=== PATIENT | male | born 1950 | race Caucasian/White ===

== ENCOUNTER 2020-05-27 08:30 | Outpatient (REF) | payer MEDICARE, SELFPAY ==
[2020-05-27 09:21] LABS: MANUAL DIFF FLAG NO
[2020-05-27 09:27] LABS: Basophils Absolute Auto 0.1 X10*3/uL (0.0-0.2); Basophils Percent Auto 1.2 % (0-2); Eosinophils Absolute Auto 0.3 X10*3/uL (0.0-0.4); Eosinophils Percent Auto 6.9 % (0-4); Hematocrit 42.9 % (42-52); Hemoglobin 14.2 g/dl (14.0-18.0); Imm Gran Abs Auto 0.02 X10*3/uL (0.00-0.03); Imm Gran Pct Auto 0.4 % (0.0-0.4); Lymphocytes Absolute Auto 1.7 X10*3/uL (1.2-4.9); Lymphocytes Percent Auto 33.7 % (20-40); Mean Corpuscular HGB Conc 33.1 g/dl (31.0-36.0); Mean Corpuscular Hemoglobin 31.6 pg (27.0-33.0); Mean Corpuscular Volume 95.5 fL (80-98); Mean Platelet Volume 10.6 fL (9.4-12.4); Monocytes Absolute Auto 0.5 X10*3/uL (0.1-1.2); Monocytes Percent Auto 9.7 % (2-11); Neutrophils Absolute Auto 2.4 X10*3/uL (2.0-8.3); Neutrophils Percent Auto 48.1 % (45-73); Platelet Count 215 X10*3/uL (160-400); Red Blood Count 4.49 X10*6/uL (4.60-5.80); Red Cell Distribution Width 12.9 % (11.0-16.0)
[2020-05-27 09:55] LABS: Alanine Aminotransferase 17 U/L (0-40); Alkaline Phosphatase 60 U/L (39-117); Anion Gap 11 (12-20); Aspartate Amino Transferase 28 U/L (5-37); Bilirubin Total 0.5 mg/dL (0.0-1.0); Blood Urea Nitrogen 16 mg/dL (9-16); Calcium 9.2 mg/dL (8.4-10.2); Carbon Dioxide 29 mmol/L (22-29); Chloride 104 mmol/L (96-108); Cholesterol 203 mg/dL; Estimated Glomerular Filt Rate > 60; Glucose Random 106 mg/dL (60-115); HDL Cholesterol 81 mg/dL; LDL Cholesterol Calculated 109 mg/dl; Potassium 4.5 mmol/l (3.3-5.1); Sodium 139 mmol/L (135-145); Total Protein 6.7 g/dL (6.5-8.0); Triglycerides 68 mg/dL
[2020-05-27 10:13] LABS: T4 Thyroxine 6.5 ug/dL (4.5-12.0)
[2020-05-27 10:29] LABS: Folate 11.3 ng/mL (> or = 4.0); Vitamin B12 627 pg/mL (200-900)
[2020-05-27 10:44] LABS: Prostate Specific Antigen Scr 5.31 ng/mL (<0.05-4.0); Thyroid Stimulating Hormone 1.39 mIU/mL (0.32-4.0)
== END 2020-05-27 08:31 | disposition home or self-care (01) ==
LOC: HO.LAB 08:30
PROVIDERS: PCP Internal Medicine; Visit Provider Internal Medicine
DX: F32.9 Major depressive disorder, single episode, unspecified (principal); I10 Essential (primary) hypertension; F41.9 Anxiety disorder, unspecified; E78.00 Pure hypercholesterolemia, unspecified; K21.9 Gastro-esophageal reflux disease without esophagitis
CPT/HCPCS: 36415; 80053; 80061; 82607; 82746; 84153; 84436; 84443; 85025

== ENCOUNTER 2020-10-02 15:03 | Outpatient (REF) | payer MEDICARE, SELFPAY ==
[2020-10-03 11:16] LABS: Free Prostate Spec Ag 0.9 ng/mL; Percent Free Prostate Spec Ag 13 % (calc) (>25); Prostate Specific Ag Total 6.7 ng/mL (< OR = 4.0)
== END 2020-10-02 15:04 | disposition home or self-care (01) ==
LOC: HO.LAB 15:03
PROVIDERS: PCP Internal Medicine; Visit Provider Urology
DX: R97.20 Elevated prostate specific antigen [PSA] (principal); N40.1 Benign prostatic hyperplasia with lower urinary tract symptoms; Z12.5 Encounter for screening for malignant neoplasm of prostate
CPT/HCPCS: 36415; 84153; 84154

== ENCOUNTER 2020-11-07 08:55 | Outpatient (REF) | payer MEDICARE, SELFPAY ==
[2020-11-07 09:37] LABS: MANUAL DIFF FLAG NO
[2020-11-07 09:55] LABS: Basophils Absolute Auto 0.1 X10*3/uL (0.0-0.2); Basophils Percent Auto 0.8 % (0-2); Eosinophils Absolute Auto 0.3 X10*3/uL (0.0-0.4); Eosinophils Percent Auto 4.5 % (0-4); Hematocrit 44.6 % (42-52); Hemoglobin 15.1 g/dl (14.0-18.0); Imm Gran Abs Auto 0.03 X10*3/uL (0.00-0.03); Imm Gran Pct Auto 0.4 % (0.0-0.4); Lymphocytes Absolute Auto 1.6 X10*3/uL (1.2-4.9); Lymphocytes Percent Auto 22.6 % (20-40); Mean Corpuscular HGB Conc 33.9 g/dl (31.0-36.0); Mean Corpuscular Hemoglobin 32.3 pg (27.0-33.0); Mean Corpuscular Volume 95.3 fL (80-98); Mean Platelet Volume 11.1 fL (9.4-12.4); Monocytes Absolute Auto 0.6 X10*3/uL (0.1-1.2); Monocytes Percent Auto 8.1 % (2-11); Neutrophils Absolute Auto 4.5 X10*3/uL (2.0-8.3); Neutrophils Percent Auto 63.6 % (45-73); Platelet Count 218 X10*3/uL (160-400); Red Blood Count 4.68 X10*6/uL (4.60-5.80); Red Cell Distribution Width 12.8 % (11.0-16.0); White Blood Count 7.1 X10*3/uL (4.8-10.8)
[2020-11-07 10:15] LABS: Alanine Aminotransferase 25 U/L (0-40); Albumin Level 4.1 g/dL (3.5-5.0); Alkaline Phosphatase 71 U/L (39-117); Anion Gap 11 (12-20); Aspartate Amino Transferase 30 U/L (5-37); Bilirubin Total 0.6 mg/dL (0.0-1.0); Blood Urea Nitrogen 23 mg/dL (9-16); Calcium 9.2 mg/dL (8.4-10.2); Carbon Dioxide 31 mmol/L (22-29); Chloride 101 mmol/L (96-108); Cholesterol 215 mg/dL; Estimated Glomerular Filt Rate > 60; Glucose Random 105 mg/dL (60-115); HDL Cholesterol 72 mg/dL; LDL Cholesterol Calculated 129 mg/dl; Potassium 4.2 mmol/L (3.3-5.1); Sodium 139 mmol/L (135-145); Total Protein 7.1 g/dL (6.5-8.0); Triglycerides 73 mg/dL
[2020-11-07 10:42] LABS: Free T4 (Free Thyroxine) 0.87 ng/dL (0.71-1.85); Prostate Specific Antigen Scr 5.79 ng/mL (<0.05-4.0); Thyroid Stimulating Hormone 1.84 uIU/mL (0.32-4.0)
[2020-11-07 11:17] LABS: Vitamin B12 559 pg/mL (200-900)
== END 2020-11-07 08:56 | disposition home or self-care (01) ==
LOC: HO.LAB 08:55
PROVIDERS: PCP Internal Medicine; Visit Provider Internal Medicine
DX: E78.00 Pure hypercholesterolemia, unspecified (principal); I10 Essential (primary) hypertension; Z12.5 Encounter for screening for malignant neoplasm of prostate
CPT/HCPCS: 36415; 80053; 80061; 82607; 82746; 84153; 84439; 84443; 85025

== ENCOUNTER 2021-03-23 12:16 | Outpatient (REF) | payer MEDICARE, SELFPAY ==
[2021-03-23 14:52] LABS: Prostate Specific Antigen Scr 5.95 ng/mL (<0.05-4.0)
[2021-03-25 07:41] LABS: Lyme Blot 5.56 index
[2021-03-25 11:24] LABS: Lyme Abs Screen POSITIVE
[2021-03-26 17:21] LABS: 18 KD (IgG) Band NON-REACTIVE; 23 KD (IgG) Band NON-REACTIVE; 23 KD (IgM) Band NON-REACTIVE; 28 KD (IgG) Band NON-REACTIVE; 30 KD (IgG) Band NON-REACTIVE; 39 KD (IgM) Band NON-REACTIVE; 41 KD (IgM) Band NON-REACTIVE; 45 KD (IgG) Band NON-REACTIVE; 58 KD (IgG) Band NON-REACTIVE; 66 KD (IgG) Band NON-REACTIVE; 93 KD (IgG) Band NON-REACTIVE; Lyme IgG Blot Interp NEGATIVE (NEGATIVE); Lyme IgM Blot Interp NEGATIVE (NEGATIVE)
== END 2021-03-23 12:17 | disposition home or self-care (01) ==
LOC: HO.LAB 12:16
PROVIDERS: PCP Internal Medicine; Visit Provider Hospitalist
DX: N40.0 Benign prostatic hyperplasia without lower urinary tract symptoms (principal); S70.261A Insect bite (nonvenomous), right hip, initial encounter; W57.XXXA Bitten or stung by nonvenomous insect and other nonvenomous arthropods, initial encounter; Y93.9 Activity, unspecified; Y92.9 Unspecified place or not applicable; Y99.9 Unspecified external cause status; Z12.5 Encounter for screening for malignant neoplasm of prostate
CPT/HCPCS: 36415; 84153; 86617; 86618

== ENCOUNTER 2021-04-09 14:24 | Outpatient (REF) | payer MEDICARE, SELFPAY ==
[2021-04-09 14:55] LABS: MANUAL DIFF FLAG NO
[2021-04-09 15:00] LABS: Basophils Percent Auto 0.6 % (0-2); Eosinophils Absolute Auto 0.2 X10*3/uL (0.0-0.4); Hematocrit 42.9 % (42-52); Hemoglobin 14.8 g/dl (14.0-18.0); Imm Gran Abs Auto 0.03 X10*3/uL (0.00-0.03); Imm Gran Pct Auto 0.4 % (0.0-0.4); Lymphocytes Absolute Auto 1.4 X10*3/uL (1.2-4.9); Lymphocytes Percent Auto 19.4 % (20-40); Mean Corpuscular HGB Conc 34.5 g/dl (31.0-36.0); Mean Corpuscular Hemoglobin 32.1 pg (27.0-33.0); Mean Corpuscular Volume 93.1 fL (80-98); Mean Platelet Volume 10.8 fL (9.4-12.4); Monocytes Absolute Auto 0.5 X10*3/uL (0.1-1.2); Monocytes Percent Auto 6.7 % (2-11); Neutrophils Absolute Auto 5.1 X10*3/uL (2.0-8.3); Neutrophils Percent Auto 69.9 % (45-73); Platelet Count 215 X10*3/uL (160-400); Red Blood Count 4.61 X10*6/uL (4.60-5.80); Red Cell Distribution Width 12.5 % (11.0-16.0); White Blood Count 7.3 X10*3/uL (4.8-10.8)
[2021-04-09 15:32] LABS: Alanine Aminotransferase 20 U/L (0-40); Albumin Level 4.2 g/dL (3.5-5.0); Alkaline Phosphatase 78 U/L (39-117); Anion Gap 12 (12-20); Aspartate Amino Transferase 26 U/L (5-37); Bilirubin Total 0.6 mg/dL (0.0-1.0); Blood Urea Nitrogen 18 mg/dL (9-16); Calcium 9.7 mg/dL (8.4-10.2); Carbon Dioxide 29 mmol/L (22-29); Chloride 103 mmol/L (96-108); Estimated Glomerular Filt Rate > 60; Glucose Random 95 mg/dL (60-115); Potassium 4.5 mmol/L (3.3-5.1); Sodium 139 mmol/L (135-145); Total Protein 7.1 g/dL (6.5-8.0)
[2021-04-09 15:42] LABS: Thyroid Stimulating Hormone 2.18 uIU/mL (0.32-4.0); Vitamin D 25-OH Total 45.2 ng/mL (>30)
[2021-04-09 15:54] LABS: Folate 19.8 ng/mL (> or = 4.0); Vitamin B12 605 pg/mL (200-900)
[2021-04-10 09:41] LABS: Lyme Blot 6.17 index
[2021-04-11 14:09] LABS: Lyme Abs Screen POSITIVE
[2021-04-13 17:56] LABS: 18 KD (IgG) Band NON-REACTIVE; 23 KD (IgG) Band NON-REACTIVE; 23 KD (IgM) Band NON-REACTIVE; 28 KD (IgG) Band NON-REACTIVE; 30 KD (IgG) Band NON-REACTIVE; 39 KD (IgM) Band NON-REACTIVE; 41 KD (IgM) Band NON-REACTIVE; 45 KD (IgG) Band NON-REACTIVE; 58 KD (IgG) Band NON-REACTIVE; 66 KD (IgG) Band NON-REACTIVE; 93 KD (IgG) Band NON-REACTIVE; Lyme IgG Blot Interp NEGATIVE (NEGATIVE); Lyme IgM Blot Interp NEGATIVE (NEGATIVE)
== END 2021-04-09 14:25 | disposition home or self-care (01) ==
LOC: HO.LAB 14:24
PROVIDERS: PCP Internal Medicine; Visit Provider Internal Medicine
DX: T14.8XXA Other injury of unspecified body region, initial encounter (principal); W57.XXXA Bitten or stung by nonvenomous insect and other nonvenomous arthropods, initial encounter
CPT/HCPCS: 36415; 80053; 82306; 82607; 82746; 84439; 84443; 85025; 86617; 86618

== ENCOUNTER → 2021-04-27 15:00 | Outpatient (BNVA) | payer MEDICARE, SELFPAY | PROVIDERS: PCP Internal Medicine; Visit Provider Internal Medicine | DX: R21 Rash and other nonspecific skin eruption (principal); S40.862A Insect bite (nonvenomous) of left upper arm, initial encounter; S40.861A Insect bite (nonvenomous) of right upper arm, initial encounter; W57.XXXA Bitten or stung by nonvenomous insect and other nonvenomous arthropods, initial encounter; Y93.9 Activity, unspecified; Y92.9 Unspecified place or not applicable; Y99.9 Unspecified external cause status; I10 Essential (primary) hypertension; E78.00 Pure hypercholesterolemia, unspecified; Z87.891 Personal history of nicotine dependence | CPT/HCPCS: 99212 ==

== ENCOUNTER → 2021-07-16 07:46 | Outpatient (REF) | payer MEDICARE, SELFPAY ==
--- NOTE | 2021-07-16 07:49 | HM_ITS ---
Conclusion: 1. Patient was monitored for total period of 4 days and 7 hours 2. Baseline was normal sinus rhythm with average heart of 72 beats per min 3. No significant pauses or bradycardia noted 4. Total of 20,229 PACs noted accounting for frequent PACs with total burden of 6.25% 5. Total of 16 supraventricular tachycardia episode noted longest lasting 7 beats at 114 beats per minute and fastest at 193 beats per minute 6. No patient reported events MTDD
== END ==
LOC: HO.CARD 07:46
PROVIDERS: PCP Internal Medicine; Visit Provider Nurse Practitioner Family
DX: R00.1 Bradycardia, unspecified (principal); I10 Essential (primary) hypertension
CPT/HCPCS: 93242

== ENCOUNTER 2021-08-24 11:31 | Outpatient (REF) | payer MEDICARE, SELFPAY ==
--- NOTE | ~2021-08-24 | XR_ITS ---
EXAMINATION: XR RIBS, LEFT CLINICAL INFORMATION: Contusion of left frontal thorax COMPARISON: None TECHNIQUE: 3 views of the left ribs were obtained. Chest one view FINDINGS: Lungs are clear. No consolidation, pneumothorax, or pleural effusion. The cardiomediastinal silhouette and pulmonary vasculature are normal. Osseous structures are unremarkable. Multiple views of left ribs reveal no visible rib fracture or bony abnormality. XR/XR ribs LT min 3V w CXR1V IMPRESSION: Unremarkable chest examination. Unremarkable left rib exam.
== END 2021-08-24 11:32 | disposition home or self-care (01) ==
LOC: HO.HMGCX 11:31
PROVIDERS: Visit Provider Internal Medicine
DX: S20.219A Contusion of unspecified front wall of thorax, initial encounter (principal)
CPT/HCPCS: 71101

== ENCOUNTER 2021-08-30 10:15 | Emergency (ER) | payer MEDICARE, SELFPAY ==
--- NOTE | ~2021-08-30 | CT_ITS ---
EXAMINATION: CT CHEST WITHOUT CONTRAST CLINICAL INFORMATION: Left-sided chest wall pain after fall COMPARISON: Chest and left rib x-rays 08/24/2021 TECHNIQUE: Multidetector volumetric CT imaging of the chest was done. Axial MIP volume rendering provided. Sagittal and coronal reformatted images were obtained. This CT examination was performed using dose optimization techniques as appropriate, variously including the following: *Automated exposure control *Adjustment of mA and/or kV according to patient size (this includes techniques or standardized protocols for targeted exams where dose is matched to indication/reason for exam; i.e. extremities or head) *Use of iterative reconstruction technique DLP: 288 mGy-cm FINDINGS: LUNGS: There is subsegmental atelectasis left midlung and at the lung bases. The lungs are otherwise clear. No evidence of contusion is seen. MEDIASTINUM: The heart is upper normal in size. The thoracic aorta is upper normal in size. There is coronary artery calcification. There is no pericardial effusion. There are no enlarged hilar or mediastinal lymph nodes. There is a small esophageal hernia. PLEURA: As a trace left pleural effusion or pleural thickening. There is no right pleural effusion. There is no pneumothorax. AXILLA: There is soft tissue swelling over the left lateral chest wall adjacent to rib fractures. No chest wall mass or enlarged axillary lymph nodes are seen. UPPER ABDOMEN: Unremarkable. OSSEOUS STRUCTURES: There are anterior lateral left sixth seventh and 8 recent appearing rib fractures. There is an old-appearing left posterior 10th rib fracture. CT/CT chest wo con IMPRESSION: Recent appearing left anterior lateral sixth and seventh and eighth rib fractures and adjacent chest wall soft tissue swelling. Subsegmental atelectasis in the left lung. Trace left pleural effusion or pleural thickening. No pneumothorax. Fleischner guidelines were followed.
[2021-08-30 10:21] VITALS: BP 168/81; PULSE 59; RESP 14; TEMP 36.3; O2SAT 98; BMI 25.8
--- NOTE | 2021-08-30 11:04 | ED.GENADULT ---
HPI - General Adult General Chief complaint: General Medical <Evelia Moyer NP - Last Filed: 08/30/21 12:30> Stated complaint: Rib pain <Evelia Moyer NP - Last Filed: 08/30/21 12:30> Time Seen by Provider: 08/30/21 10:30 <Evelia Moyer NP - Last Filed: 08/30/21 12:30> Source: patient <Evelia Moyer NP - Last Filed: 08/30/21 12:30> Mode of arrival: ambulatory <Evelia Moyer NP - Last Filed: 08/30/21 12:30> Limitations: no limitations <Evelia Moyer NP - Last Filed: 08/30/21 12:30> History of Present Illness HPI narrative: 70-year-old male here with reports of left-sided chest wall pain after skiing incident which occurred August 20. Patient tells me he was skiing when his pole hit his left chest wall. He was seen at a walk-in clinic on August 24 and had a rib x-ray which showed no acute fractures. He has been using Naprosyn twice daily with continued pain. No cough, fever, shortness of breath, abdominal pain, vomiting or diarrhea. Patient is not on anticoagulation There was no head strike or loss of consciousness <Evelia Moyer NP - Last Filed: 08/30/21 12:30> Related Data Home medications: Home Medications Medication Instructions Recorded Confirmed duloxetine 60 mg capsule,delayed 60 mg PO DAILY 05/23/20 07/07/21 release (Cymbalta) multivitamin 1 tab PO DAILY 05/23/20 07/07/21 diazepam 2 mg tablet 2 mg PO BID PRN 08/13/21 Previous Rx's Medication Instructions Recorded omeprazole 40 mg capsule,delayed 40 mg PO DAILY #90 cap 11/18/20 release simvastatin 40 mg tablet 40 mg PO DAILY #90 tab 11/18/20 lisinopril 20 1 tab PO DAILY #90 tab 07/07/21 mg-hydrochlorothiazide 12.5 mg tablet cyclobenzaprine 10 mg tablet 10 mg PO TID PRN #10 tab 08/30/21 lidocaine 5 % topical patch 1 patch TOPICAL DAILY #15 ea 08/30/21 (Lidoderm) naproxen 500 mg tablet 500 mg PO BID PRN #20 tab 08/30/21 <Evelia Moyer NP - Last Filed: 08/30/21 12:30> Allergies/adverse reactions: Allergies Allergy/AdvReac Type Severity Reaction Status Date / Time No Known Allergies Allergy Verified 08/24/21 10:51 [No Known Allergies*] <Evelia Moyer NP - Last Filed: 08/30/21 12:30> Review of Systems Review of Systems: Yes all other systems are reviewed and are negative <Evelia Moyer NP - Last Filed: 08/30/21 12:30> Constitutional: Constitutional: Reports no additional constitutional complaints, Denies body ache(s), Denies chills, Denies fever(s), Denies headache(s) and Denies weakness <Evelia Moyer NP - Last Filed: 08/30/21 12:30> Eyes: Eyes: Reports no additional eye complaints and Denies change in vision <Evelia Moyer NP - Last Filed: 08/30/21 12:30> ENT: Reports system reviewed and no additional complaints, except as documented, Denies dizziness, Denies headache(s), Denies nasal congestion, Denies nasal discharge and Denies neck pain <Evelia Moyer NP - Last Filed: 08/30/21 12:30> Cardiovascular: Cardiovascular: Reports no additional cardiovascular complaints, Reports chest pain, Denies leg edema and Denies dyspnea <Evelia Moyer NP - Last Filed: 08/30/21 12:30> Respiratory: Respiratory: Reports no additional respiratory complaints, Denies cough and Denies dyspnea <Evelia Moyer NP - Last Filed: 08/30/21 12:30> Gastrointestinal: Gastrointestinal: Reports no additional gastrointestinal complaints, Denies abdominal pain, Denies diarrhea, Denies nausea and Denies vomiting <Evelia Moyer NP - Last Filed: 08/30/21 12:30> Genitourinary: Genitourinary: Denies urinary incontinence <Evelia Moyer NP - Last Filed: 08/30/21 12:30> Musculoskeletal: Musculoskeletal: Reports no additional musculoskeletal complaints, Denies back pain, Denies arthralgias, Denies joint swelling, Denies neck pain, Denies numbness and Denies tingling <Evelia Moyer NP - Last Filed: 08/30/21 12:30> Integumentary/Breasts: Skin/Breast: Reports system reviewed and no additional complaints, except as docu and Denies rash <Evelia Moyer NP - Last Filed: 08/30/21 12:30> Neurologic: Reports system reviewed and no additional complaints, except as documented, Denies Abnormal speech present, Denies dizziness, Denies headache(s), Denies numbness, Denies tingling and Denies weakness <Evelia Moyer NP - Last Filed: 08/30/21 12:30> [facility] Past Medical History Attestation statement: The following information was validated with the patient. <Evelia Moyer NP - Last Filed: 08/30/21 12:30> Source: old records reviewed and nursing notes reviewed <Evelia Moyer NP - Last Filed: 08/30/21 12:30> Medical History: Medical History BPH (benign prostatic hyperplasia) Finger fracture, right GERD (gastroesophageal reflux disease) Hypercholesterolemia Rash <Evelia Moyer NP - Last Filed: 08/30/21 12:30> Surgical History: Surgical History History of eye surgery History of inguinal hernia repair History of knee surgery History of tonsillectomy History of vasectomy <Evelia Moyer NP - Last Filed: 08/30/21 12:30> Family History Family History: Family History Father Bladder cancer Mother No problems noted. <Evelia Moyer NP - Last Filed: 08/30/21 12:30> Social History Social History: Social History Housing: House Alcohol intake: current Alcohol intake frequency: 0-2 drinks per day Patient Tobacco Use Status: Former Tobacco user e-Cigarette/Vaping Use: Never Used Second Hand Smoke Exposure: No Advance Directives: Yes Advance Directives Information Provided: No Advance Directives on File: No service: No Current occupational status: retired <Evelia Moyer NP - Last Filed: 08/30/21 12:30> Physical Exam Vital Signs: Vital Signs: Last Vital Signs Temp 97.4 F 08/30/21 10:21 Pulse 59 08/30/21 10:21 Resp 14 08/30/21 10:21 BP 168/81 H 08/30/21 10:21 Pulse Ox 98 08/30/21 10:21 BMI result Body Mass Index 25.8 <Evelia Moyer NP - Last Filed: 08/30/21 12:30> Vital Signs: Last Vital Signs Temp 97.4 F 08/30/21 10:21 Pulse 59 08/30/21 10:21 Resp 14 08/30/21 10:21 BP 168/81 H 08/30/21 10:21 Pulse Ox 98 08/30/21 10:21 BMI result Body Mass Index 25.8 <Geoff Grigsby MD - Last Filed: 09/01/21 06:51> Const: General: cooperative, healthy appearing, comfortable and no acute distress <Evelia Moyer NP - Last Filed: 08/30/21 12:30> Orientation/consciousness: patient oriented x3 <Evelia Moyer NP - Last Filed: 08/30/21 12:30> Limitations: no limitations <Evelia Moyer NP - Last Filed: 08/30/21 12:30> HENMT: Head: Yes normal to inspection <Evelia Moyer NP - Last Filed: 08/30/21 12:30> Ears: hearing grossly normal bilaterally <Evelia Moyer NP - Last Filed: 08/30/21 12:30> General nose exam: Normal external nose present <Evelia Moyer NP - Last Filed: 08/30/21 12:30> Face and sinus: Yes normal facial exam <Evelia Moyer NP - Last Filed: 08/30/21 12:30> Mouth: Normal oral and palatal mucosa present <Evelia Moyer NP - Last Filed: 08/30/21 12:30> Throat: Yes posterior oropharynx normal <Evelia Moyer NP - Last Filed: 08/30/21 12:30> Eyes: General: appearance normal, both eyes and all related structures <Evelia Moyer NP - Last Filed: 08/30/21 12:30> Pupils: Equal, round and reactive pupils present <Evelia Moyer NP - Last Filed: 08/30/21 12:30> Neck: Neck: Yes normal visual inspection, Yes full ROM and Yes no lymphadenopathy <Evelia Moyer NP - Last Filed: 08/30/21 12:30> Chest: Chest palpation & inspection: normal inspection of the chest and tenderness (Left lateral chest wall over the lateral ribs. No ecchymosis or crepitus) <Evelia Moyer NP - Last Filed: 08/30/21 12:30> Resp: Effort & Inspection: normal respiratory effort <Evelia Moyer NP - Last Filed: 08/30/21 12:30> Auscultation: clear to auscultation bilaterally <Evelia Moyer NP - Last Filed: 08/30/21 12:30> Cardio: Rate: regular rate <Evelia Moyer NP - Last Filed: 08/30/21 12:30> Rhythm: regular rhythm <Evelia Moyer NP - Last Filed: 08/30/21 12:30> Peripheral pulses: Peripheral pulses 2+ throughout <Evelia Moyer NP - Last Filed: 08/30/21 12:30> GI: Inspection: Yes normal to inspection <Evelia Moyer NP - Last Filed: 08/30/21 12:30> Palpation (GI): Soft to palpation and nontender <Evelia Moyer NP - Last Filed: 08/30/21 12:30> Auscultation: normal bowel sounds <Evelia Moyer NP - Last Filed: 08/30/21 12:30> Back/Spine/Pelvis: Thoracic/Lumbar Spine: thoracic and lumbar spine normal to inspection <Evelia Moyer NP - Last Filed: 08/30/21 12:30> Skin: General skin exam: no rashes or lesions noted <Evelia Moyer NP - Last Filed: 08/30/21 12:30> Neuro: General: patient oriented x3, no focal motor deficits and normal sensation to monofilament <Evelia Moyer NP - Last Filed: 08/30/21 12:30> Cranial nerves: Yes Equal, round and reactive pupils present <Evelia Moyer NP - Last Filed: 08/30/21 12:30> Cognition (Neuro): normal cognition <Evelia Moyer NP - Last Filed: 08/30/21 12:30> Speech: No Abnormal speech present <Evelia Moyer NP - Last Filed: 08/30/21 12:30> Gait exam (Neuro): Normal gait present <Evelia Moyer NP - Last Filed: 08/30/21 12:30> Motor exam (neuro): 5/5 motor strength present throughout <Evelia Moyer NP - Last Filed: 08/30/21 12:30> Extrem: General: Yes normal to inspection <Evelia Moyer NP - Last Filed: 08/30/21 12:30> Course Course Course Narrative: 70-year-old male here with persistent left chest wall pain after a skiing injury on August 20 despite taking Naprosyn at home. Negative outpatient x-ray. Will check CT chest 1150-CT chest shows CT/CT chest wo con ?IMPRESSION: Recent appearing left anterior lateral sixth and seventh and eighth rib fractures and adjacent chest wall soft tissue swelling. Subsegmental atelectasis in the left lung. Trace left pleural effusion or pleural thickening. No pneumothorax.? ? No hypoxia, tachypnea. Pain is well controlled. Plan for discharge home with incentive spirometer. Reviewed worrisome signs and symptoms of when to return to the emergency department. Comfortable discharge home. <Evelia Moyer NP - Last Filed: 08/30/21 12:30> Medical Decision Making Medical Records Medical records reviewed: Yes I reviewed the patient's medical records. <Evelia Moyer NP - Last Filed: 08/30/21 12:30> Lab Data Lab results reviewed: Yes I reviewed the patient's lab results. <Evelia Moyer NP - Last Filed: 08/30/21 12:30> Imaging Data CT scan - chest: Attestation: I personally reviewed and interpreted this imaging study as follows: <Evelia Moyer NP - Last Filed: 08/30/21 12:30> Radiologist's impression: CT/CT chest wo con ?IMPRESSION: Recent appearing left anterior lateral sixth and seventh and eighth rib fractures and adjacent chest wall soft tissue swelling. Subsegmental atelectasis in the left lung. Trace left pleural effusion or pleural thickening. No pneumothorax.? ? Fleischner guidelines were followed. <Evelia Moyer NP - Last Filed: 08/30/21 12:30> Discharge Plan Discharge Clinical Impression: Closed rib fracture <Evelia Moyer NP - Last Filed: 08/30/21 12:30> Patient Disposition: Home, Self-Care <Evelia Moyer NP - Last Filed: 08/30/21 12:30> Instructions: Rib Fracture (ED) <Evelia Moyer NP - Last Filed: 08/30/21 12:30> Additional Instructions: Use incentive spirometer at home while awake Return for fever or productive cough for difficulty breathing as this may be signs of pneumonia <Evelia Moyer NP - Last Filed: 08/30/21 12:30> Prescriptions: New naproxen 500 mg tablet 500 mg PO BID PRN (Reason: pain) Qty: 20 RF: 0 cyclobenzaprine 10 mg tablet 10 mg PO TID PRN (Reason: muscle spasm) Qty: 10 RF: 0 lidocaine [Lidoderm] 5 % adhesive patch,medicated 1 patch topical DAILY Qty: 15 RF: 0 No Action multivitamin Tablet 1 tab PO DAILY RF: 0 duloxetine [Cymbalta] 60 mg capsule,delayed release(DR/EC) 60 mg PO DAILY RF: 0 simvastatin 40 mg tablet 40 mg PO DAILY Qty: 90 RF: 3 omeprazole 40 mg capsule,delayed release(DR/EC) 40 mg PO DAILY Qty: 90 RF: 3 diazepam 2 mg tablet 2 mg PO BID PRNRF: 0 lisinopril-hydrochlorothiazide 20-12.5 mg tablet 1 tab PO DAILY Qty: 90 RF: 0 <Evelia Moyer NP - Last Filed: 08/30/21 12:30> Referrals: Po,Rojelio Venegas MD [Primary Care Provider] - 2 days (as needed) <Evelia Moyer NP - Last Filed: 08/30/21 12:30> Interventions: ED Discharge Assessment Last Done: 08/30/21 12:01 <Evelia Moyer NP - Last Filed: 08/30/21 12:30> Discharge Date/Time: 08/30/21 12:01 <Evelia Moyer NP - Last Filed: 08/30/21 12:30>
== END 2021-08-30 12:01 | disposition home or self-care (01) ==
PROVIDERS: Emergency Provider Emergency Medicine; PCP Internal Medicine
DX: S22.42XA Multiple fractures of ribs, left side, initial encounter for closed fracture (principal); R07.81 Pleurodynia; Y93.23 Activity, snow (alpine) (downhill) skiing, snowboarding, sledding, tobogganing and snow tubing; Y92.828 Other wilderness area as the place of occurrence of the external cause; Y99.9 Unspecified external cause status; Z79.899 Other long term (current) drug therapy; Z87.891 Personal history of nicotine dependence
CPT/HCPCS: 71250; 99283

== ENCOUNTER → 2021-09-23 14:55 | Outpatient (BNVA) | payer MEDICARE, SELFPAY | PROVIDERS: PCP Internal Medicine; Referring Provider Internal Medicine; Visit Provider Internal Medicine Cardiovascular Disease | DX: I47.1 Supraventricular tachycardia (principal); I25.10 Atherosclerotic heart disease of native coronary artery without angina pectoris | CPT/HCPCS: 99202 ==

== ENCOUNTER → 2021-11-02 07:41 | Outpatient (REF) | payer MEDICARE, SELFPAY ==
--- NOTE | 2021-11-02 07:46 | CA_ITS ---
Acquisition Time: 2021-11-02 08:08:47 Total Exercise Time: 00:06:42 Test Indications: ABN EKG, SVT Medications: SEE CHART Protocol: LETHA Max HR: 129 BPM 87% of Pred: 147 BPM Max BP: 150/078 mmHG Max Work Load: 8.0 METS Exercise stress test with exercise 6 min 42 sec of Letha protocol, without anginal symptoms, with frequent PACs, rare PVC, with normotensive response to exercise, without EKG changes meeting criteria for ischemia, with nonspecific ST abnormality noted, scooping ST segments. Test reviewed with Dr. Cameron Referred By: Royce Ambrose Overread By: JORDI DUNN
== END ==
LOC: HO.CARD 07:41
PROVIDERS: Visit Provider Internal Medicine Cardiovascular Disease
DX: I25.10 Atherosclerotic heart disease of native coronary artery without angina pectoris (principal)
CPT/HCPCS: 93017

== ENCOUNTER → 2021-11-06 10:29 | Outpatient (REF) | payer MEDICARE, SELFPAY ==
--- NOTE | 2021-11-06 10:32 | CA_ITS ---
Transthoracic Echocardiogram Patient (Last, First, Middle): Eyad Mistry E Gender: Male Date of : 1950 Age: 71 Procedure Date: 11/06/2021 Procedure Type: Transthoracic Echocardiogram Location: OP Height: 172.72 cm Weight: 77.11 kg BSA: 1.91 m2 Heart Rate: bpm BP: 136 / 78 mmHg [employer]r: RUBA Referring MD: Royce Ambrose MD Symptoms: I47.1 - Supraventricular tachycardia Study Quality: Good ECG Rhythm: Sinus Conclusions: - The calculated ejection fraction is 63% by biplane method. There is no evidence of regional wall motion abnormalities. - LV peak GLS -18.4%. - Mildly increased right ventricular cavity size. - No obvious valvular pathology seen on this study. Findings Left Ventricle Normal left ventricular cavity size. The left ventricular systolic function is normal. The calculated ejection fraction is 63% by biplane method. There is no evidence of regional wall motion abnormalities. Diastolic function is normal for age. There is mild septal and mild basal asymmetric hypertrophy. LV peak GLS -18.4%. Right Ventricle Mildly increased right ventricular cavity size. There is normal right ventricular systolic function. Atria Both atria are normal in size. Aortic Valve There is a normal trileaflet aortic valve. There is mild calcification of the aortic valve. There is no aortic valve stenosis. There is no aortic valve regurgitation. Mitral Valve The mitral valve appears normal. There is no mitral valve regurgitation. There is no mitral valve stenosis. Pulmonic Valve The pulmonic valve was not well visualized. Tricuspid Valve There is trace tricuspid valve regurgitation. The pulmonary artery systolic pressure is normal. Great Vessels The asc aorta and aortic arch are normal in size. Venous The inferior vena cava is normal in size and collapses greater than 50% with inspiration. Pericardium/Pleural There is no evidence of pericardial effusion. Prior Study Comparison No prior study available for comparison. Recommendations, Care & Conclusions No obvious valvular pathology seen on this study. Measurements 2D Linear Measurements IVSd: 1.11 0.6-0.9/0.6-1.0 cm LVIDd: 4.12 3.9-5.3/4.2-5.9 cm LVIDd Index: 2.16 2.4-3.2/2.2-3.1 cm/m2 LVIDs: 2.69 2.0-3.6 cm LVPWd: 0.88 0.7-1.1 cm LA Diam: 3.60 2.7-3.8/3.0-4.0 cm LAIDs Index: 1.88 1.5-2.3 cm/m2 LV Mass: 164.96 67-162/88-224 g LV Mass Index: 86.37 43-95/49-115 g/m2 LVOT Diam: 2.10 3.0+(-)1.3 cm 2D Systolic Function EF 4C: 66.70 >55% EF 2C: 60.60 >55% EF BiP: 62.90 >55% Mitral Valve MV Pk E: 0.38 MV PK A: 0.54 MV Decel Time: 320.00 E/A: 0.70 E'Lateral: 11.50 E'Medial: 6.20 E/E' Med: 6.20 E/E' Lat: 3.30 PHT: 94.00 MVA PHT: 2.34 Decel [place]: 1.20 Aortic Valve AoV Pk Sunday: 1.12 AoV Mn Sunday: 0.81 AoV VTI: 0.26 AoV Pk Grad: 5.00 Aov Mn Grad: 3.00 BASIL Cont.VTI: 2.98 LVOT LVOT Pk Sunday: 0.99 LVOT Mn Sunday: 0.75 LVOT VTI: 0.22 LVOT Pk Grad: 4.00 LVOT Mn Grad: 2.00 LVOT Diam: 2.10 LVOT Area: 3.46 Diastolic Function MV Pk E: 0.38 MV Pk A: 0.54 E/A: 0.70 E'Medial: 6.20 E/E' Med: 6.20 E' Laterial: 11.50 E/E' Lat: 3.30 Right Ventricle TAPSE (mm): 24.30 TVS' Sunday: 11.10 Tricuspid Valve TR Pk Sunday: 1.69 TR Pk Grad: 11.00 RA Press: 3.00 RVSP: 14.00 Great Vessels Aorta Sinus of Valsalva: 3.67 2.0-3.[address] [place]: 2.89 1.7-3.4 cm Ao Asc: 3.80 2.1-3.4 cm Ao Arch: 3.20 Updated in Other Vendor System with Status of Final Magdi Cameron MD electronically signed on 11/07/2021 1:55:47 PM with status of Final
== END ==
LOC: HO.CARD 10:29
PROVIDERS: Visit Provider Internal Medicine Cardiovascular Disease
DX: I47.1 Supraventricular tachycardia (principal)
CPT/HCPCS: 93306; 93356

== ENCOUNTER → 2021-11-09 14:28 | Outpatient (BNVA) | payer MEDICARE, SELFPAY | PROVIDERS: PCP Internal Medicine; Referring Provider Internal Medicine; Visit Provider Internal Medicine Cardiovascular Disease | DX: I25.10 Atherosclerotic heart disease of native coronary artery without angina pectoris (principal); I47.1 Supraventricular tachycardia; Z79.82 Long term (current) use of aspirin; Z79.899 Other long term (current) drug therapy | CPT/HCPCS: 99212 ==

== ENCOUNTER 2021-12-07 06:56 | Outpatient (REF) | payer MEDICARE, SELFPAY ==
[2021-12-07 07:11] LABS: MANUAL DIFF FLAG NO
[2021-12-07 07:38] LABS: Basophils Absolute Auto 0.1 X10*3/uL (0.0-0.2); Basophils Percent Auto 0.9 % (0-2); Eosinophils Absolute Auto 0.4 X10*3/uL (0.0-0.4); Eosinophils Percent Auto 5.6 % (0-4); Hematocrit 45.3 % (42.0-52.0); Hemoglobin 15.2 g/dl (14.0-18.0); Imm Gran Abs Auto 0.02 X10*3/uL (0.00-0.03); Imm Gran Pct Auto 0.3 % (0.0-0.4); Lymphocytes Absolute Auto 1.8 X10*3/uL (1.2-4.9); Lymphocytes Percent Auto 26.9 % (20-40); Mean Corpuscular HGB Conc 33.6 g/dl (31.0-36.0); Mean Corpuscular Hemoglobin 31.8 pg (27.0-33.0); Mean Corpuscular Volume 94.8 fL (80.0-98.0); Monocytes Absolute Auto 0.5 X10*3/uL (0.1-1.2); Monocytes Percent Auto 7.6 % (2-11); Neutrophils Absolute Auto 3.9 x10*3/uL (2.0-8.3); Neutrophils Percent Auto 58.7 % (45-73); Platelet Count 243 X10*3/uL (160-400); Red Blood Count 4.78 X10*6/uL (4.60-5.80); Red Cell Distribution Width 12.9 % (11.0-16.0); White Blood Count 6.6 X10*3/uL (4.8-10.8)
[2021-12-07 08:03] LABS: Alanine Aminotransferase 15 U/L (0-40); Albumin Level 4.1 g/dL (3.5-5.0); Alkaline Phosphatase 81 U/L (39-117); Anion Gap 13 (12-20); Aspartate Amino Transferase 27 U/L (5-37); Bilirubin Total 0.5 mg/dL (0.0-1.0); Blood Urea Nitrogen 21 mg/dL (9-16); Calcium 10.1 mg/dL (8.4-10.2); Carbon Dioxide 28 mmol/L (22-29); Chloride 103 mmol/L (96-108); Cholesterol 191 mg/dL; Estimated Glomerular Filt Rate > 60; Glucose Random 121 mg/dL (60-115); HDL Cholesterol 72 mg/dL; LDL Cholesterol Calculated 110 mg/dl; Potassium 4.7 mmol/L (3.3-5.1); Sodium 139 mmol/L (135-145); Total Protein 7.1 g/dL (6.5-8.0); Triglycerides 49 mg/dL
[2021-12-07 08:39] LABS: Free T4 (Free Thyroxine) 0.99 ng/dL (0.71-1.85); Prostate Specific Antigen Scr 5.63 ng/mL (<0.05-4.0); Thyroid Stimulating Hormone 1.88 uIU/mL (0.32-4.0)
[2021-12-07 11:00] LABS: Folate 19.5 ng/mL (> or = 4.0); Vitamin B12 574 pg/mL (200-900)
== END 2021-12-07 06:57 | disposition home or self-care (01) ==
LOC: HO.LAB 06:56
PROVIDERS: PCP Internal Medicine; Visit Provider Internal Medicine
DX: Z12.5 Encounter for screening for malignant neoplasm of prostate (principal); N40.0 Benign prostatic hyperplasia without lower urinary tract symptoms; E78.00 Pure hypercholesterolemia, unspecified
CPT/HCPCS: 36415; 80053; 80061; 82607; 82746; 84153; 84439; 84443; 85025

== ENCOUNTER 2022-01-05 14:13 | Emergency (ER) | payer MEDICARE, SELFPAY ==
[2022-01-05 14:20] VITALS: BP 137/88; PULSE 73; RESP 18; TEMP 37.1; O2SAT 97; BMI 25.1
[2022-01-05 14:36] LABS: MANUAL DIFF FLAG NO
[2022-01-05 14:38] LABS: Basophils Absolute Auto 0.1 X10*3/uL (0.0-0.2); Basophils Percent Auto 0.6 % (0-2); Eosinophils Absolute Auto 0.1 X10*3/uL (0.0-0.4); Eosinophils Percent Auto 1.7 % (0-4); Hematocrit 42.3 % (42.0-52.0); Hemoglobin 14.5 g/dl (14.0-18.0); Imm Gran Abs Auto 0.02 X10*3/uL (0.00-0.03); Imm Gran Pct Auto 0.3 % (0.0-0.4); Lymphocytes Absolute Auto 1.7 X10*3/uL (1.2-4.9); Lymphocytes Percent Auto 21.7 % (20-40); Mean Corpuscular HGB Conc 34.3 g/dl (31.0-36.0); Mean Corpuscular Hemoglobin 31.9 pg (27.0-33.0); Mean Platelet Volume 10.3 fL (9.4-12.4); Monocytes Absolute Auto 0.5 X10*3/uL (0.1-1.2); Monocytes Percent Auto 6.8 % (2-11); Neutrophils Absolute Auto 5.3 x10*3/uL (2.0-8.3); Neutrophils Percent Auto 68.9 % (45-73); Platelet Count 225 X10*3/uL (160-400); Red Blood Count 4.55 X10*6/uL (4.60-5.80); Red Cell Distribution Width 12.6 % (11.0-16.0); White Blood Count 7.8 X10*3/uL (4.8-10.8)
[2022-01-05 14:54] LABS: COVID-19 Test Negative (Negative); IDNOW Serial# 16C4AD1C
[2022-01-05 14:58] LABS: Alanine Aminotransferase 21 U/L (0-40); Albumin Level 4.1 g/dL (3.5-5.0); Alkaline Phosphatase 79 U/L (39-117); Anion Gap 12 (12-20); Aspartate Amino Transferase 31 U/L (5-37); Bilirubin Total 0.6 mg/dL (0.0-1.0); Blood Urea Nitrogen 18 mg/dL (9-16); Carbon Dioxide 27 mmol/L (22-29); Chloride 102 mmol/L (96-108); Creatinine Clr Calc Pharmacy 57.2; Estimated Glomerular Filt Rate > 60; Glucose Random 104 mg/dL (60-115); Potassium 4.2 mmol/L (3.3-5.1); Sodium 137 mmol/L (135-145); Total Protein 6.9 g/dL (6.5-8.0)
[2022-01-05 16:15] LABS: Amphetamine Screen Urine Not Detected (Not Detect); Barbiturates, Urine Not Detected (Not Detect); Benzodiazepines Screen Urine POSITIVE (Not Detect); Cannabinoid Screen Urine Not Detected (Not Detect); Cocaine Screen Urine Not Detected (Not Detect); Fentanyl, urine Not Detected (Not Detect); Opiate Screen Urine Not Detected (Not Detect); Phencyclidine Screen Urine Not Detected (Not Detect)
--- NOTE | 2022-01-05 17:22 | ED_ITS ---
HPI - General Adult General Chief complaint: Psychiatric Symptoms Stated complaint: crisis Time Seen by Provider: 01/05/22 17:21 Source: patient Limitations: no limitations History of Present Illness HPI narrative: This is a 71-year-old male with a longstanding history of anxiety and depression who was on antidepressants as well as Valium 5 mg t.i.d., who was being feeling suicidal for about a month. He does not have any specific plans. He lives home with his . He notes he has been anhedonic and even though his tries to get him to do activities that he used to enjoy such as fishing, he feels like would just be going through the motions and not actually enjoying anything. He does admit to early waking around 4 in the morning. His appetite has been decreased, only eating about 1 meal a day. He does have decreased energy. He denies any physical complaints such as headache, chest pain, shortness of breath, abdominal pain. He does have history of hypertension SVT, hypercholesterolemia, GERD. He denies using any alcohol for a month, denies any other illicit drugs. The patient would like to pursue ECT treatment Related Data Home Medications Medication Instructions Recorded Confirmed duloxetine 60 mg capsule,delayed 60 mg PO DAILY 05/23/20 12/16/21 release (Cymbalta) multivitamin 1 tab PO DAILY 05/23/20 12/16/21 aspirin 81 mg tablet,delayed 81 mg PO DAILY 12/16/21 12/16/21 release (Adult Aspirin Regimen) sertraline 100 mg tablet 100 mg PO DAILY 12/16/21 12/16/21 Previous Rx's Medication Instructions Recorded lidocaine 5 % topical patch 1 patch TOPICAL DAILY #15 ea 08/30/21 (Lidoderm) diazepam 5 mg tablet 5 mg PO BID-TID PRN #90 tab 09/11/21 lisinopril 20 1 tab PO DAILY #90 tab 09/14/21 mg-hydrochlorothiazide 12.5 mg tablet omeprazole 40 mg capsule,delayed 40 mg PO DAILY #90 cap 12/04/21 release atorvastatin 80 mg tablet 80 mg PO DAILY 90 Days #90 tab 12/16/21 Allergies Allergy/AdvReac Type Severity Reaction Status Date / Time No Known Allergies Allergy Verified 01/05/22 14:20 [No Known Allergies*] Review of Systems Review of Systems: Yes all other systems are reviewed and are negative Constitutional: Constitutional: Reports as per HPI and Denies fever(s) Eyes: Eyes: Reports as per HPI and Reports no additional eye complaints ENT: Reports system reviewed and no additional complaints, except as d ocumented, Reports as per HPI, Denies nasal congestion, Denies nasal discharge and Denies sore throat Cardiovascular: Cardiovascular: Reports as per HPI, Denies chest pain and Denies dyspnea Respiratory: Respiratory: Reports as per HPI, Denies cough and Denies dyspnea Gastrointestinal: Gastrointestinal: Reports as per HPI, Denies abdominal pain, Denies diarrhea and Denies vomiting Genitourinary: Genitourinary: Reports as per HPI, Denies hematuria, Denies dysuria and Denies urinary frequency Musculoskeletal: Musculoskeletal: Reports no additional musculoskeletal complaints and Denies numbness Integumentary/Breasts: Skin/Breast: Reports as per HPI and Denies rash Neurologic: Reports as per HPI, Denies focal weakness and Denies numbness Psychiatric: Psychiatric: Reports no additional psychiatric complaints, Reports as per HPI, Reports abnormal sleep pattern, Reports anxiety, Reports change in appetite, Reports depression, Denies auditory hallucinations, Reports anhedonia and Reports suicidal ideation Endocrine: Endocrine: Reports no additional endocrine complaints and Reports as per HPI Hematologic/Lymphatic: Hematologic/Lymphatic: Reports no additional hematologic/lymphatic complaints, Reports as per HPI and Reports other (No peripheral edema) [facility] Past Medical History Medical History BPH (benign prostatic hyperplasia) Finger fracture, right GERD (gastroesophageal reflux disease) Hypercholesterolemia Rash Surgical History History of eye surgery History of inguinal hernia repair History of knee surgery History of tonsillectomy History of vasectomy Family History Family History Father Bladder cancer Mother No problems noted. Social History Social History Housing: House Alcohol intake: current Alcohol intake frequency: 0-2 drinks per day Patient Tobacco Use Status: Former Tobacco user e-Cigarette/Vaping Use: Never Used Second Hand Smoke Exposure: No Advance Directives: No Advance Directives Information Provided: No Guardian: No service: No Current occupational status: retired Cognitive needs: No Hearing needs: No Vision needs: Yes Physical Exam ED Vital Signs: Vital Signs - 24 hr 01/05/22 14:20 Temperature 98.7 F Pulse Rate 73 Respiratory Rate 18 Blood Pressure 137/88 Pulse Oximetry 97 BMI result Body Mass Index 25.1 Const General: no acute distress Orientation/consciousness: patient oriented x3 HENMT Head: Yes normal to inspection General nose exam: Normal external nose present Mouth: moist mucous membranes Throat: Yes posterior oropharynx normal, Yes tonsils normal and Yes uvula midline Eyes Eyelids: Yes eyelids normal Conjunctivae: conjunctivae normal Pupils: Equal, round and reactive pupils present Neck Neck: Yes supple Resp Effort & Inspection: normal respiratory effort Auscultation: clear to auscultation bilaterally Cardio Rate: regular rate Rhythm: regular rhythm Heart sounds: S1 normal heart sound present, S2 normal heart sound present, no gallops, no murmurs and no rubs GI Inspection: No distended Palpation (GI): Soft to palpation and nontender Auscultation: normal bowel sounds Skin General skin exam: other (Warm and dry) Neuro General: patient oriented x3 and CN's II-XI intact bilaterally Cranial nerves: Yes Equal, round and reactive pupils present Extrem General: Yes no pedal edema Psych Affect: Sad affect present (Mildly) and Anxious affect present (Mildly) Attitude: cooperative Medical Decision Making [facility] Narrative Medical decision making narrative: Patient with a long history of depression, admits some suicidal thoughts for the last month or so, has been on various antidepressants, also volume. Patient has no specific plan, lives with his . The patient was evaluated by crisis team and does not appear to be any any danger to himself. Outpatient ECT treatment will be arranged. Patient can continue current medications. Lab Data Lab results reviewed: Yes I reviewed the patient's lab results. Result diagrams: 01/05/22 14:29 01/05/22 14:29 Labs: Lab Results 01/05/22 01/05/22 01/05/22 Range/Units 14:29 14:29 14:29 WBC 7.8 (4.8-10.8) X10*3/uL RBC 4.55 L (4.60-5.80) X10*6/uL Hgb 14.5 (14.0-18.0) g/dl Hct 42.3 (42.0-52.0) % MCV 93.0 (80.0-98.0) fL MCH 31.9 (27.0-33.0) pg MCHC 34.3 (31.0-36.0) g/dl RDW 12.6 (11.0-16.0) % Plt Count 225 (160-400) X10*3/uL MPV 10.3 (9.4-12.4) fL Immature Gran % (Auto) 0.3 (0.0-0.4) % Neut % (Auto) 68.9 (45-73) % Lymph % (Auto) 21.7 (20-40) % Falls % (Auto) 6.8 (2-11) % Eos % (Auto) 1.7 (0-4) % Baso % (Auto) 0.6 (0-2) % Lymph # (Auto) 1.7 (1.2-4.9) X10*3/uL [place] # (Auto) 0.5 (0.1-1.2) X10*3/uL Eos # (Auto) 0.1 (0.0-0.4) X10*3/uL Baso # (Auto) 0.1 (0.0-0.2) X10*3/uL Abs Immat Gran (auto) 0.02 (0.00-0.03) X10*3/uL Absolute Neuts (auto) 5.3 (2.0-8.3) x10*3/uL Absolute Nucleated RBC 0.000 (0.0-0.012) X10*3/uL Nucleated RBC % (auto) 0.0 (0.0-0.2) /100WBC Sodium 137 (135-145) mmol/L Potassium 4.2 (3.3-5.1) mmol/L Chloride 102 (96-108) mmol/L Carbon Dioxide 27 (22-29) mmol/L Anion Gap 12 (12-20) BUN 18 H (9-16) mg/dL Creatinine 1.15 (0.5-1.4) mg/dL Estim Creat Clear Calc 57.2 Estimated GFR > 60 Random Glucose 104 (60-115) mg/dL Calcium 10.0 (8.4-10.2) mg/dL Total Bilirubin 0.6 (0.0-1.0) mg/dL AST 31 (5-37) U/L ALT 21 (0-40) U/L Alkaline Phosphatase 79 (39-117) U/L Total Protein 6.9 (6.5-8.0) g/dL Albumin 4.1 (3.5-5.0) g/dL Urine Opiates Screen (Not Detect) Urine Fentanyl Screen (Not Detect) Ur Barbiturates Screen (Not Detect) Ur Phencyclidine Scrn (Not Detect) Ur Amphetamines Screen (Not Detect) U Benzodiazepines Scrn (Not Detect) Urine Cocaine Screen (Not Detect) U Marijuana (THC) Screen (Not Detect) COVID-19 ([facility]) Negative (Negative) COVID-19 Clin Com See Note 01/05/22 Range/Units 15:54 WBC (4.8-10.8) X10*3/uL RBC (4.60-5.80) X10*6/uL Hgb (14.0-18.0) g/dl Hct (42.0-52.0) % MCV (80.0-98.0) fL MCH (27.0-33.0) pg MCHC (31.0-36.0) g/dl RDW (11.0-16.0) % Plt Count (160-400) X10*3/uL MPV (9.4-12.4) fL Immature Gran % (Auto) (0.0-0.4) % Neut % (Auto) (45-73) % Lymph % (Auto) (20-40) % [place] % (Auto) (2-11) % Eos % (Auto) (0-4) % Baso % (Auto) (0-2) % Lymph # (Auto) (1.2-4.9) X10*3/uL [place] # (Auto) (0.1-1.2) X10*3/uL Eos # (Auto) (0.0-0.4) X10*3/uL Baso # (Auto) (0.0-0.2) X10*3/uL Abs Immat Gran (auto) (0.00-0.03) X10*3/uL Absolute Neuts (auto) (2.0-8.3) x10*3/uL Absolute Nucleated RBC (0.0-0.012) X10*3/uL Nucleated RBC % (auto) (0.0-0.2) /100WBC Sodium (135-145) mmol/L Potassium (3.3-5.1) mmol/L Chloride (96-108) mmol/L Carbon Dioxide (22-29) mmol/L Anion Gap (12-20) BUN (9-16) mg/dL Creatinine (0.5-1.4) mg/dL Estim Creat Clear Calc Estimated GFR Random Glucose (60-115) mg/dL Calcium (8.4-10.2) mg/dL Total Bilirubin (0.0-1.0) mg/dL AST (5-37) U/L ALT (0-40) U/L Alkaline Phosphatase (39-117) U/L Total Protein (6.5-8.0) g/dL Albumin (3.5-5.0) g/dL Urine Opiates Screen Not Detected (Not Detect) Urine Fentanyl Screen Not Detected (Not Detect) Ur Barbiturates Screen Not Detected (Not Detect) Ur Phencyclidine Scrn Not Detected (Not Detect) Ur Amphetamines Screen Not Detected (Not Detect) U Benzodiazepines Scrn POSITIVE H (Not Detect) Urine Cocaine Screen Not Detected (Not Detect) U Marijuana (THC) Screen Not Detected (Not Detect) COVID-19 ([facility]) (Negative) COVID-19 Clin Com Discharge Plan Discharge Clinical Impression: Depression, Suicidal ideation Patient Disposition: Home, Self-Care Instructions: Depression in Older Adults (ED) Additional Instructions: Continue current medications. Return for any worsened symptoms. The care team will reach out to you regarding follow-up for ECT, after they speak with Dr. Velarde. Outpatient ECT may be arranged, versus inpatient ECT at a later date. Prescriptions: No Action lisinopril-hydrochlorothiazide 20-12.5 mg tablet 1 tab PO DAILY Qty: 90 2RF omeprazole 40 mg capsule,delayed release(DR/EC) 40 mg PO DAILY Qty: 90 3RF lidocaine [Lidoderm] 5 % adhesive patch,medicated 1 patch topical DAILY Qty: 15 0RF Rx Instructions: leave on most painful area for up to 12 hrs multivitamin Tablet 1 tab PO DAILY 0RF duloxetine [Cymbalta] 60 mg capsule,delayed release(DR/EC) 60 mg PO DAILY 0RF aspirin [Adult Aspirin Regimen] 81 mg tablet,delayed release (DR/EC) 81 mg PO DAILY 0RF sertraline 100 mg tablet 100 mg PO DAILY 0RF atorvastatin 80 mg tablet 80 mg PO DAILY 90 Days Qty: 90 3RF diazepam 5 mg tablet 5 mg PO BID-TID PRN (Reason: anxiety) Qty: 90 0RF Interventions: ED Discharge Assessment Last Done: 01/05/22 18:30
--- NOTE | 2022-01-05 18:00 | PC.NURSE ---
addendum to triage: client has been having passive SI no plan, method, intent. lives w , exercises regularly but feels hes lost joys in life and daily activities seem to be a struggle. states father also had depression anxiety which required F to retire early. has medication he takes for ^BP, cholesterol, gerd, stopped drinking etoh regularly about one month ago, states hes a fussy eater, eats about one meal daily and some snacks. has friends hikes or walks regularly. client is curious about ect. has tried PHP (live)
== END 2022-01-05 18:51 | disposition home or self-care (01) ==
PROVIDERS: Emergency Provider Emergency Medicine; PCP Internal Medicine
DX: F32.A Depression, unspecified (principal); R45.851 Suicidal ideations; F41.9 Anxiety disorder, unspecified; Z20.822 Contact with and (suspected) exposure to COVID-19; I10 Essential (primary) hypertension; E78.00 Pure hypercholesterolemia, unspecified; Z79.82 Long term (current) use of aspirin; Z79.899 Other long term (current) drug therapy
CPT/HCPCS: 80053; 80307; 85025; 87635; 99283

== ENCOUNTER 2022-01-11 11:41 | Inpatient (IN) | payer MEDICARE, SELFPAY ==
--- NOTE | 2022-01-11 | ECG_ITS ---
Test Reason : MED CLEARANCE Blood Pressure : / mmHG Vent. Rate : 057 BPM Atrial Rate : 057 BPM P-R Int : 186 ms QRS Dur : 074 ms QT Int : 402 ms P-R-T Axes : 060 031 039 degrees QTc Int : 391 ms Sinus bradycardia with marked sinus arrhythmia Otherwise normal ECG When compared with ECG of 21-AUG-2009 06:42, No significant change was found Referred By: Margaret Hicks Electronically Signed By:ISATU EMMANUEL
[2022-01-11 11:49] VITALS: BP 138/83; PULSE 77; RESP 18; TEMP 36.6; O2SAT 98; BMI 24.3
--- NOTE | 2022-01-11 12:48 | ED_ITS ---
HPI - Psych General Chief Complaint: Psychiatric Symptoms Stated Complaint: M-5 ADMIT? Time Seen by Provider: 01/11/22 12:39 Source: patient and family () Mode of arrival: ambulatory Limitations: no limitations History of Present Illness HPI Narrative: Patient comes emergency room accompanied by his . Patient has been complaining of worsening depression for the last 6 months. Patient states that 2 months ago he woke up 1 day with suicidal ideation, worsening depression. Since then, multiple medication changes have been made. Patient was evaluated 1 week ago at this facility, patient was here for suicidal ideation. Patient was discharged, patient has been attending a partial program, patient did 5/10 days, patient states it is not helping and his depression keeps getting worse. Today, patient's contacted [facility]/care team, seems that time arrangements have been made for the patient to be admitted to and to possibly start ECT treatment. Related Data Home Medications Medication Instructions Recorded Confirmed duloxetine 60 mg capsule,delayed 40 mg PO DAILY 05/23/20 01/11/22 release (Cymbalta) multivitamin 1 tab PO DAILY 05/23/20 01/11/22 aspirin 81 mg tablet,delayed 81 mg PO DAILY 12/16/21 01/11/22 release (Adult Aspirin Regimen) sertraline 100 mg tablet 150 mg PO DAILY 12/16/21 01/11/22 diazepam 5 mg tablet 5 mg PO TID PRN 01/11/22 01/11/22 Previous Rx's Medication Instructions Recorded lisinopril 20 1 tab PO DAILY #90 tab 09/14/21 mg-hydrochlorothiazide 12.5 mg tablet omeprazole 40 mg capsule,delayed 40 mg PO DAILY #90 cap 12/04/21 release atorvastatin 80 mg tablet 80 mg PO DAILY 90 Days #90 tab 12/16/21 Allergies Allergy/AdvReac Type Severity Reaction Status Date / Time No Known Allergies Allergy Verified 01/05/22 14:20 [No Known Allergies*] Review of Systems Review of Systems: Constitutional : No Weight loss, No Fever, No Chills, No Night Sweats, No Fatigue, No Malaise ENT/Mouth : No Hearing loss, No Ear Pain, No Nasal Congestion, No Sinus Pain, No Hoarseness, No sore throat, No Rhinorrhea, No Swallowing Difficulty Eyes: No Eye Pain, No Swelling, No Redness, No Foreign Body, No Discharge, No Vision Changes Cardiovascular : No Chest Pain, No SOB, No Dyspnea on Exertion, No Orthopnea, No Edema, No Palpitations Respiratory : No Cough, No Sputum, No Wheezing, No Smoke Exposure, No Dyspnea Gastrointestinal : No Nausea, No Vomiting, No Diarrhea, No Constipation, No abdominal Pain, No Hematochezia, No Melena Genitourinary : no irregular bleeding, No Dysuria, No Urinary Frequency, No Hematuria, No Urinary Incontinence, No Urgency, No Flank Pain, No Urinary Flow Changes, No Hesitancy Musculoskeletal : No joint pain, No Myalgias, No Joint Swelling Skin : No Skin Lesions, No rash Neuro : No Weakness, No Numbness, No Paresthesias, No Loss of Consciousness, No Dizziness, No Headache Psych : Slightly anxious, depressed, active suicidal ideation, no homicidal ideation Heme/Lymph: No Bruising, No Bleeding,No Lymphadenopathy Endocrine : No Polyuria, No Polydipsia, No Temperature Intolerance PMFSH Past Medical History Medical History BPH (benign prostatic hyperplasia) Finger fracture, right GERD (gastroesophageal reflux disease) Hypercholesterolemia Rash Surgical History History of eye surgery History of inguinal hernia repair History of knee surgery History of tonsillectomy History of vasectomy Family History Family History Father Bladder cancer Mother No problems noted. Social History Social History Housing: House Alcohol intake: current Alcohol intake frequency: 0-2 drinks per day Patient Tobacco Use Status: Former Tobacco user e-Cigarette/Vaping Use: Never Used Second Hand Smoke Exposure: No Advance Directives: Yes Advance Directives Information Provided: Yes Advance Directives on File: No service: No Current occupational status: retired Cognitive needs: No Hearing needs: No Vision needs: Yes Physical Exam Vital Signs: Vital Signs: Last Vital Signs Temp 97.8 F 01/11/22 11:49 Pulse 77 01/11/22 11:49 Resp 18 01/11/22 11:49 BP 138/83 01/11/22 11:49 Pulse Ox 98 01/11/22 11:49 BMI result Body Mass Index 24.3 Const: Other: Appearance: Alert. Oriented X3. No acute distress. Well-appearing Eyes: Pupils equal, round and reactive to light. ENT: Pharynx normal. Neck: Normal inspection. Neck supple. No lymph nodes noted. No crepitus CVS: Normal heart rate and rhythm. Pulses normal. Normal S1 and S2 Respiratory: No respiratory distress. Breath sounds normal. No Wheezing. No rales Abdomen: Soft and nontender. No rigidity. No distention. Skin: Skin warm and dry. Normal skin color. Normal skin turgor. Extremities: No lower extremity edema. No Lacerations. No Rash Neuro: Oriented X 3. No motor deficit. No sensory deficit. Moving all extremities. No slurred speech. CN 2 through 12 grossly intact Psych: calm, cooperative, normal affect Course Course Course Narrative: Patient's labs are pending. Patient is well-appearing, calm, cooperative. Per patient, in/care team already arranged for admission to at 15:30. Care team consult has been requested. Patient does have a mild UTI, patient was started on p.o. cefuroxime, which will need to be continued once patient is admitted. Urine toxicology positive for benzodiazepines. Patient has a prescription for Valium. MDM - Psych Lab Data Result diagrams: 01/11/22 13:25 01/11/22 13:25 Labs: Lab Results 01/11/22 01/11/22 01/11/22 Range/Units 13:25 13:25 13:25 WBC 7.2 (4.8-10.8) X10*3/uL RBC 4.42 L (4.60-5.80) X10*6/uL Hgb 14.1 (14.0-18.0) g/dl Hct 41.5 L (42.0-52.0) % MCV 93.9 (80.0-98.0) fL MCH 31.9 (27.0-33.0) pg MCHC 34.0 (31.0-36.0) g/dl RDW 12.5 (11.0-16.0) % Plt Count 219 (160-400) X10*3/uL MPV 10.8 (9.4-12.4) fL Immature Gran % (Auto) 0.3 (0.0-0.4) % Neut % (Auto) 73.3 H (45-73) % Lymph % (Auto) 16.5 L (20-40) % [place] % (Auto) 7.3 (2-11) % Eos % (Auto) 1.9 (0-4) % Baso % (Auto) 0.7 (0-2) % Lymph # (Auto) 1.2 (1.2-4.9) X10*3/uL [place] # (Auto) 0.5 (0.1-1.2) X10*3/uL Eos # (Auto) 0.1 (0.0-0.4) X10*3/uL Baso # (Auto) 0.1 (0.0-0.2) X10*3/uL Abs Immat Gran (auto) 0.02 (0.00-0.03) X10*3/uL Absolute Neuts (auto) 5.3 (2.0-8.3) x10*3/uL Absolute Nucleated RBC 0.000 (0.0-0.012) X10*3/uL Nucleated RBC % (auto) 0.0 (0.0-0.2) /100WBC Sodium 138 (135-145) mmol/L Potassium 4.0 (3.3-5.1) mmol/L Chloride 104 (96-108) mmol/L Carbon Dioxide 28 (22-29) mmol/L Anion Gap 10 L (12-20) BUN 17 H (9-16) mg/dL Creatinine 1.00 (0.5-1.4) mg/dL Estim Creat Clear Calc 63.6 Estimated GFR > 60 Fasting Glucose 89 (60-99) mg/dL Calcium 9.1 D (8.4-10.2) mg/dL Total Bilirubin 0.3 (0.0-1.0) mg/dL AST 24 (5-37) U/L ALT 18 (0-40) U/L Alkaline Phosphatase 72 (39-117) U/L Total Protein 6.4 L (6.5-8.0) g/dL Albumin 3.9 (3.5-5.0) g/dL Urine Color Urine Appearance Urine pH (5.0-8.0) Ur Specific [place] (1.005-1.025) Urine Protein (NEG-TRACE) MG/DL Urine Glucose (UA) (NEG) MG/DL Urine Ketones (NEG) MG/DL Urine Blood (NEG) Urine Nitrite (NEG) Ur Leukocyte Esterase (NEG) Urine Opiates Screen (Not Detect) Urine Fentanyl Screen (Not Detect) Ur Barbiturates Screen (Not Detect) Ur Phencyclidine Scrn (Not Detect) Ur Amphetamines Screen (Not Detect) U Benzodiazepines Scrn (Not Detect) Urine Cocaine Screen (Not Detect) U Marijuana (THC) Screen (Not Detect) Ethyl Alcohol mg/dL COVID-19 ([facility]) Negative (Negative) COVID-19 Clin Com See Note 01/11/22 01/11/22 01/11/22 Range/Units 13:25 13:27 13:27 WBC (4.8-10.8) X10*3/uL RBC (4.60-5.80) X10*6/uL Hgb (14.0-18.0) g/dl Hct (42.0-52.0) % MCV (80.0-98.0) fL MCH (27.0-33.0) pg MCHC (31.0-36.0) g/dl RDW (11.0-16.0) % Plt Count (160-400) X10*3/uL MPV (9.4-12.4) fL Immature Gran % (Auto) (0.0-0.4) % Neut % (Auto) (45-73) % Lymph % (Auto) (20-40) % [place] % (Auto) (2-11) % Eos % (Auto) (0-4) % Baso % (Auto) (0-2) % Lymph # (Auto) (1.2-4.9) X10*3/uL [place] # (Auto) (0.1-1.2) X10*3/uL Eos # (Auto) (0.0-0.4) X10*3/uL Baso # (Auto) (0.0-0.2) X10*3/uL Abs Immat Gran (auto) (0.00-0.03) X10*3/uL Absolute Neuts (auto) (2.0-8.3) x10*3/uL Absolute Nucleated RBC (0.0-0.012) X10*3/uL Nucleated RBC % (auto) (0.0-0.2) /100WBC Sodium (135-145) mmol/L Potassium (3.3-5.1) mmol/L Chloride (96-108) mmol/L Carbon Dioxide (22-29) mmol/L Anion Gap (12-20) BUN (9-16) mg/dL Creatinine (0.5-1.4) mg/dL Estim Creat Clear Calc Estimated GFR Fasting Glucose (60-99) mg/dL Calcium (8.4-10.2) mg/dL Total Bilirubin (0.0-1.0) mg/dL AST (5-37) U/L ALT (0-40) U/L Alkaline Phosphatase (39-117) U/L Total Protein (6.5-8.0) g/dL Albumin (3.5-5.0) g/dL Urine Color YELLOW Urine Appearance CLEAR Urine pH 5.5 (5.0-8.0) Ur Specific [place] >= 1.030 H (1.005-1.025) Urine Protein NEG (NEG-TRACE) MG/DL Urine Glucose (UA) NEG (NEG) MG/DL Urine Ketones NEG (NEG) MG/DL Urine Blood NEG (NEG) Urine Nitrite NEG (NEG) Ur Leukocyte Esterase 2+ H (NEG) Urine Opiates Screen Not Detected (Not Detect) Urine Fentanyl Screen Not Detected (Not Detect) Ur Barbiturates Screen Not Detected (Not Detect) Ur Phencyclidine Scrn Not Detected (Not Detect) Ur Amphetamines Screen Not Detected (Not Detect) U Benzodiazepines Scrn POSITIVE H (Not Detect) Urine Cocaine Screen Not Detected (Not Detect) U Marijuana (THC) Screen Not Detected (Not Detect) Ethyl Alcohol < 10 mg/dL COVID-19 ([facility]) (Negative) COVID-19 Clin Com Discharge Plan Discharge Clinical Impression: Depression, Suicidal ideation, Urinary tract infection Patient Disposition: Admitted As Inpatient Prescriptions: No Action lisinopril-hydrochlorothiazide 20-12.5 mg tablet 1 tab PO DAILY Qty: 90 2RF omeprazole 40 mg capsule,delayed release(DR/EC) 40 mg PO DAILY Qty: 90 3RF diazepam 5 mg tablet 5 mg PO TID PRN (Reason: anxiety) 0RF multivitamin Tablet 1 tab PO DAILY 0RF duloxetine [Cymbalta] 60 mg capsule,delayed release(DR/EC) 40 mg PO DAILY 0RF aspirin [Adult Aspirin Regimen] 81 mg tablet,delayed release (DR/EC) 81 mg PO DAILY 0RF sertraline 100 mg tablet 150 mg PO DAILY 0RF atorvastatin 80 mg tablet 80 mg PO DAILY 90 Days Qty: 90 3RF
[2022-01-11] MEDS: diazePAM 2 MG TABLET 5 MG PO (13:14)
--- NOTE | 2022-01-11 13:17 | PC.NURSE ---
lives with was in last week and contemplating ECT which he wants to receive while inpatient, lives with , depression and anxiety he has addressed with medications and therapy, continues wth passive si thoughts no plan intent or identified method contracts for safety denies recent drug etoh use and delusions
[2022-01-11 13:33] LABS: MANUAL DIFF FLAG NO
[2022-01-11 13:35] LABS: Basophils Absolute Auto 0.1 X10*3/uL (0.0-0.2); Basophils Percent Auto 0.7 % (0-2); Eosinophils Absolute Auto 0.1 X10*3/uL (0.0-0.4); Eosinophils Percent Auto 1.9 % (0-4); Hematocrit 41.5 % (42.0-52.0); Hemoglobin 14.1 g/dl (14.0-18.0); Imm Gran Abs Auto 0.02 X10*3/uL (0.00-0.03); Imm Gran Pct Auto 0.3 % (0.0-0.4); Lymphocytes Absolute Auto 1.2 X10*3/uL (1.2-4.9); Lymphocytes Percent Auto 16.5 % (20-40); Mean Corpuscular Hemoglobin 31.9 pg (27.0-33.0); Mean Corpuscular Volume 93.9 fL (80.0-98.0); Mean Platelet Volume 10.8 fL (9.4-12.4); Monocytes Absolute Auto 0.5 X10*3/uL (0.1-1.2); Monocytes Percent Auto 7.3 % (2-11); Neutrophils Absolute Auto 5.3 x10*3/uL (2.0-8.3); Neutrophils Percent Auto 73.3 % (45-73); Platelet Count 219 X10*3/uL (160-400); Red Blood Count 4.42 X10*6/uL (4.60-5.80); Red Cell Distribution Width 12.5 % (11.0-16.0); White Blood Count 7.2 X10*3/uL (4.8-10.8)
[2022-01-11 13:38] LABS: Appearance Urine CLEAR; Color Urine YELLOW; Glucose Urine UA NEG (NEG); Leukocyte Esterase Urine 2+ (NEG); Nitrite Urine NEG (NEG); PH 5.5 (5.0-8.0); Specific Gravity - Urine >= 1.030 (1.005-1.025); UACC Culture Trigger YES; Urine Blood NEG (NEG); Urine Ketones NEG (NEG); Urine Protein NEG (NEG-TRACE)
[2022-01-11 13:46] LABS: Ethanol < 10 mg/dL
[2022-01-11 13:52] LABS: Amphetamine Screen Urine Not Detected (Not Detect); Barbiturates, Urine Not Detected (Not Detect); Benzodiazepines Screen Urine POSITIVE (Not Detect); Cannabinoid Screen Urine Not Detected (Not Detect); Cocaine Screen Urine Not Detected (Not Detect); Fentanyl, urine Not Detected (Not Detect); Opiate Screen Urine Not Detected (Not Detect); Phencyclidine Screen Urine Not Detected (Not Detect)
[2022-01-11 13:52] LABS: Alanine Aminotransferase 18 U/L (0-40); Albumin Level 3.9 g/dL (3.5-5.0); Alkaline Phosphatase 72 U/L (39-117); Anion Gap 10 (12-20); Aspartate Amino Transferase 24 U/L (5-37); Bilirubin Total 0.3 mg/dL (0.0-1.0); Blood Urea Nitrogen 17 mg/dL (9-16); COVID-19 Test Negative (Negative); Calcium 9.1 mg/dL (8.4-10.2); Carbon Dioxide 28 mmol/L (22-29); Chloride 104 mmol/L (96-108); Creatinine Clr Calc Pharmacy 63.6; Estimated Glomerular Filt Rate > 60; Glucose Fasting 89 mg/dL (60-99); IDNOW Serial# 16C4AD1C; Sodium 138 mmol/L (135-145); Total Protein 6.4 g/dL (6.5-8.0)
[2022-01-11 13:57] LABS: UACC CULT YES
[2022-01-11 13:59] LABS: Bacteria Urine TRACE /LPF
--- NOTE | 2022-01-11 19:03 | PC.NURSE ---
Pt admitted to the floor on 01/11/2022 at 1800 from the ED. The pt is a 71 year old male who reports anxiety and depression as very high . Pt reports feeling helpless and hopeless. The pt was oriented to the unit, protocols explained, paperwork signed.
[2022-01-11] MEDS: diazePAM 5 MG TABLET PO (20:02)
[2022-01-12 06:00] VITALS: BP 119/70; PULSE 65; RESP 16; TEMP 36.9; O2SAT 98
[2022-01-12] MEDS: Omeprazole 40 MG CAPSULE.DR PO (06:28)
[2022-01-12] MEDS: Sertraline HCL 50 MG TABLET 150 MG PO (08:14)
[2022-01-12] MEDS: Atorvastatin Calcium 80 MG TABLET PO (08:14)
[2022-01-12] MEDS: Aspirin Enteric Coated 81 MG TABLET.DR PO (08:14)
[2022-01-12] MEDS: hydroCHLOROthiazide 12.5 MG TABLET PO (08:14)
[2022-01-12] MEDS: DULoxetine HCl 20 MG CAPSULE.DR 40 MG PO (08:14)
[2022-01-12] MEDS: lisinopriL 20 MG TABLET PO (08:15)
[2022-01-12] MEDS: Multivitamin TABLET 1 TAB PO (08:15)
[2022-01-12 08:18] VITALS: BP 142/81; PULSE 75; RESP 16
--- NOTE | 2022-01-12 10:36 | P.HPPS_ITS ---
HPI Date of Service: 01/12/22 Chief Complaint: Depression, Anxiety Sources of Information: patient interviewed, chart reviewed and crisis/core team assessment reviewed HPI Subjective Notes: Traore Warning and Conditional Voluntary Narrative: pt is a 71 yo With CAD, SVT, current UTI and long history of refractory depression and anxiety, having failed numerous medication trials who presents for worsening depression with increased passive wish and wanting ECT. Patient reports that he was on Cymbalta for the past year and a half and was doing okay however, Around winter time his mood started to worsen; Cymbalta was increased to no avail and he continued to have increasing depression. Diazepam was added and increased. Over the past several months his depression has only increased until more recently he started having thoughts of what is the sense of living. . . I do not really care about living. Patient endorses diminished interest, low energy, worsening concentration, increased guilt, decreased appetite and increased sleeping. Patient wanted ECT but was told it would take months to initiate as an outpatient. Patient denies any intention or plans but because of this onset of passive wish, patient felt the need to hurry up and get ECT without delay. Patient denies history of trauma; denies history of manic type behaviors or episodes. [employer] Driver reviewed risks/side effects of ECT and patient agrees and wants to commence. He hopes that this can convert to outpatient ECT since his is supportive and can drive him to and from. Past Psychiatric History: partial hospital admission x2 Depression likely since he was child; multiple medication trials with little benefit. Medication trials: Zoloft partially effective Cymbalta: Partially effective Lamictal Ox carbamazepine Abilify Ardoch Remeron Amitriptyline Wellbutrin Seroquel numerous others Medical Evaluation Reviewed: Yes REPLACED BY [facility] Medical History (Updated 01/12/22 @ 16:48 by Khalif Alexander MD) Finger fracture, right GERD (gastroesophageal reflux disease) Hypercholesterolemia MDD (major depressive disorder), recurrent episode, severe Rash Surgical History History of eye surgery History of inguinal hernia repair History of knee surgery History of tonsillectomy History of vasectomy Family History: Father: Severe depression/anxiety sister: Depression Social History: Graduated high school, attended the [employer], 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 Vital Signs (24Hr): Vital Signs - 24 hr 01/11/22 11:49 01/12/22 06:00 01/12/22 08:18 Temperature 97.8 F 98.4 F Pulse Rate 77 65 75 Respiratory Rate 18 16 16 Blood Pressure 138/83 119/70 142/81 H Pulse Oximetry 98 98 BMI result Body Mass Index 24.3 Labs Results: 01/11/22 13:25 01/11/22 13:25 Labs: Laboratory Results - last 48 hr 01/11/22 01/11/22 01/11/22 13:25 13:25 13:25 WBC 7.2 RBC 4.42 L Hgb 14.1 Hct 41.5 L MCV 93.9 MCH 31.9 MCHC 34.0 RDW 12.5 Plt Count 219 MPV 10.8 Immature Gran % (Auto) 0.3 Neut % (Auto) 73.3 H Lymph % (Auto) 16.5 L [place] % (Auto) 7.3 Eos % (Auto) 1.9 Baso % (Auto) 0.7 Lymph # (Auto) 1.2 [place] # (Auto) 0.5 Eos # (Auto) 0.1 Baso # (Auto) 0.1 Abs Immat Gran (auto) 0.02 Absolute Neuts (auto) 5.3 Absolute Nucleated RBC 0.000 Nucleated RBC % (auto) 0.0 Sodium 138 Potassium 4.0 Chloride 104 Carbon Dioxide 28 Anion Gap 10 L BUN 17 H Creatinine 1.00 Estim Creat Clear Calc 63.6 Estimated GFR > 60 Fasting Glucose 89 Calcium 9.1 D Total Bilirubin 0.3 AST 24 ALT 18 Alkaline Phosphatase 72 Total Protein 6.4 L Albumin 3.9 Urine Color Urine Appearance Urine pH Ur Specific [place] Urine Protein Urine Glucose (UA) Urine Ketones Urine Blood Urine Nitrite Ur Leukocyte Esterase Urine RBC Urine WBC Ur Squamous Epith Cells Urine Bacteria Urine Opiates Screen Urine Fentanyl Screen Ur Barbiturates Screen Ur Phencyclidine Scrn Ur Amphetamines Screen U Benzodiazepines Scrn Urine Cocaine Screen U Marijuana (THC) Screen Ethyl Alcohol COVID-19 ([facility]) Negative COVID-19 Clin Com See Note 01/11/22 01/11/22 01/11/22 13:25 13:27 13:27 WBC RBC Hgb Hct MCV MCH MCHC RDW Plt Count MPV Immature Gran % (Auto) Neut % (Auto) Lymph % (Auto) [place] % (Auto) Eos % (Auto) Baso % (Auto) Lymph # (Auto) [place] # (Auto) Eos # (Auto) Baso # (Auto) Abs Immat Gran (auto) Absolute Neuts (auto) Absolute Nucleated RBC Nucleated RBC % (auto) Sodium Potassium Chloride Carbon Dioxide Anion Gap BUN Creatinine Estim Creat Clear Calc Estimated GFR Fasting Glucose Calcium Total Bilirubin AST ALT Alkaline Phosphatase Total Protein Albumin Urine Color YELLOW Urine Appearance CLEAR Urine pH 5.5 Ur Specific [place] >= 1.030 H Urine Protein NEG Urine Glucose (UA) NEG Urine Ketones NEG Urine Blood NEG Urine Nitrite NEG Ur Leukocyte Esterase 2+ H Urine RBC 1-4 Urine WBC 15-29 H Ur Squamous Epith Cells NONE Urine Bacteria TRACE Urine Opiates Screen Not Detected Urine Fentanyl Screen Not Detected Ur Barbiturates Screen Not Detected Ur Phencyclidine Scrn Not Detected Ur Amphetamines Screen Not Detected U Benzodiazepines Scrn POSITIVE H Urine Cocaine Screen Not Detected U Marijuana (THC) Screen Not Detected Ethyl Alcohol < 10 COVID-19 ([facility]) COVID-19 Clin Com Meds/Allergies Meds Home Medications Medication Instructions Recorded Confirmed Type duloxetine 60 mg capsule,delayed 40 mg PO DAILY 05/23/20 01/11/22 History release (Cymbalta) multivitamin 1 tab PO DAILY 05/23/20 01/11/22 History aspirin 81 mg tablet,delayed 81 mg PO DAILY 12/16/21 01/11/22 History release (Adult Aspirin Regimen) sertraline 100 mg tablet 150 mg PO DAILY 12/16/21 01/11/22 History diazepam 5 mg tablet 5 mg PO TID PRN 01/11/22 01/11/22 History Allergies Allergies Allergy/AdvReac Type Severity Reaction Status Date / Time No Known Allergies Allergy Verified 01/05/22 14:20 [No Known Allergies*] Mental Status Exam Mental Status Exam Narrative: Pt is alert and oriented; behavior is cooperative and calm; patient is not in distress; dressed in casual attire, well groomed; mood is described as depressed and affect blunted; eye contact appropriate; Speech is normal rate, volume and prosody and not pressured; psychomotor retardation present; thought process is organized and goal directed; Thought content is on tx, trying to be hopeful, passive wish; no active SI; no HI; otherwise pertinent to relevant topics and without any delusional content, paranoid ideations or grandiosity; There is no evidence of perceptual disturbance. Patients insight and judgment are impaired. Assessment & Plan Assessment & Plan (1) MDD (major depressive disorder), recurrent episode, severe: Status: Acute Code(s): F33.2 - Major depressive disorder, recurrent severe without psychotic features (2) Generalized anxiety disorder: Status: Acute Code(s): F41.1 - Generalized anxiety disorder (3) Urinary tract infection: Status: Acute Code(s): N39.0 - Urinary tract infection, site not specified (4) CAD (coronary artery disease): Status: Acute Code(s): I25.10 - Atherosclerotic heart disease of [place] coronary artery without angina pectoris (5) SVT (supraventricular tachycardia): Status: Acute Code(s): I47.1 - Supraventricular tachycardia (6) Essential hypertension: Status: Acute Code(s): I10 - Essential (primary) hypertension Plan HPI: pt is a 71 yo With CAD, SVT, current UTI and long history of refractory depression and anxiety, having failed numerous medication trials who presents for worsening depression with increased passive wish and wanting ECT. -patient is candidate for ECT --passive wish which is uncharacteristic for patient and prompted presentation to the emergency room to expedite ECT -he is currently being cross titrated coming down off Cymbalta back on to Zoloft and will continue this here. PLAN: CV Q 15 minute checks ECT #1 Pending 01/13/22 Lowered Cymbalta to 20mg Increased Zoloft to 200mg (outpatient provider has been cross titrating these 2 meds) continue home meds Patient educated on: diagnosis and ECT Informed Consent: understands Reason for continued inpatient stay Substantial Risk for: rapid decompensation
[2022-01-12] MEDS: diazePAM 5 MG TABLET PO (12:11)
--- NOTE | 2022-01-12 17:07 | HO.PM.IMCN ---
History of Present Illness Data of Consult Service Date: 01/12/22 Primary Care Provider: Rojelio Montanez MD [facility] Reason for consult: ECT risk stratification 71-year-old male with major depressive disorder scheduled for ECT in a.m.. No acute medical issues at this time Review of Systems Review of Systems: denies chest pain Denies shortness of breath Denies nausea vomiting diarrhea Denies fever chills PMFSH Medical History Finger fracture, right GERD (gastroesophageal reflux disease) Hypercholesterolemia MDD (major depressive disorder), recurrent episode, severe Rash Family History Father Bladder cancer Mother No problems noted. Surgical History History of eye surgery History of inguinal hernia repair History of knee surgery History of tonsillectomy History of vasectomy Social History Household Members: Spouse Housing: House Do you presently have visiting nurse or other home services: No Alcohol intake: current Alcohol intake frequency: 0-2 drinks per day Patient Tobacco Use Status: Never used Tobacco e-Cigarette/Vaping Use: Never Used Second Hand Smoke Exposure: No Use of substances other than those prescribed or required for medical reasons: No Currently Displaying Signs/Symptoms of Drug Intoxication Withdrawal: No Have you been hit, kicked, punched, or otherwise hurt by someone within the past year? If so, by whom?: No Do you feel safe in your current relationship?: Yes Is there a partner from a previous relationship who is making you feel unsafe now?: No Are you made to feel afraid or neglected: No Advance Directives: Yes Advance Directives Information Provided: Yes Advance Directives on File: No Do you have thoughts of harming others: None Do you have a plan to hurt others: No Plan Recently lost weight without trying: No Eating poorly because of decreased appetite: No Nutrition Risks: No Nutritional Risk Poor oral hygiene: No service: Yes Current occupational status: retired Sexual orientation: Straight/Heterosexual Cognitive needs: No Hearing needs: No Vision needs: Yes Meds Allergies Allergy/AdvReac Type Severity Reaction Status Date / Time No Known Allergies Allergy Verified 01/05/22 14:20 [No Known Allergies*] Active Medications: Current Medications Acetaminophen (Acetaminophen 325 Mg Tablet) 650 mg PO Q6H PRN PRN Reason: Headache/Pain Mild Scale (1-3) Al Hydroxide/Mg Hydroxide (Magnesium Hydrox/Alum Hydrox 30 Ml Oral.Susp) 30 ml PO Q6H PRN PRN Reason: Heartburn/Nausea Aspirin (Aspirin Enteric Coated 81 Mg Tablet.) 81 mg PO DAILY [facility] Last Admin: 01/12/22 08:14 Dose: 81 mg Documented by: Atorvastatin Calcium (Atorvastatin Calcium 80 Mg Tablet) 80 mg PO DAILY [facility] Last Admin: 01/12/22 08:14 Dose: 80 mg Documented by: Cefuroxime Axetil (Cefuroxime Axetil 250 Mg Tablet) 250 mg PO BID [facility] Stop: 01/18/22 23:59 Last Admin: 01/12/22 12:11 Dose: 250 mg Documented by: Diazepam (Diazepam 5 Mg Tablet) 5 mg PO TID PRN PRN Reason: anxiety Last Admin: 01/12/22 12:11 Dose: 5 mg Documented by: Duloxetine HCl (Duloxetine Hcl 20 Mg Capsule.) 20 mg PO DAILY [facility] Stop: 01/13/22 23:50 Hydrochlorothiazide (Hydrochlorothiazide 12.5 Mg Tablet) 12.5 mg PO DAILY [facility] Last Admin: 01/12/22 08:14 Dose: 12.5 mg Documented by: Hydroxyzine HCl (Hydroxyzine Hcl 25 Mg Tablet) 25 mg PO BEDTIME PRN PRN Reason: Anxiety Lisinopril (Lisinopril 20 Mg Tablet) 20 mg PO DAILY [facility] Last Admin: 01/12/22 08:15 Dose: 20 mg Documented by: Magnesium Hydroxide (Milk Of Magnesia 30 Ml Oral.Susp) 30 ml PO DAILY PRN PRN Reason: Constipation Multivitamins/Vitamin C (Multivitamin Tablet) 1 tab PO DAILY [facility] Last Admin: 01/12/22 08:15 Dose: 1 tab Documented by: Omeprazole (Omeprazole 40 Mg Capsule.) 40 mg PO DAILY@30 [facility] Last Admin: 01/12/22 06:28 Dose: 40 mg Documented by: Sertraline HCl (Sertraline Hcl 100 Mg Tablet) 200 mg PO DAILY [facility] Trazodone HCl (Trazodone Hcl 50 Mg Tablet) 50 mg PO BEDTIME PRN PRN Reason: Insomnia Home Medications Medication Instructions Recorded Confirmed Last Taken Type duloxetine 60 mg capsule,delayed 40 mg PO DAILY 05/23/20 01/11/22 01/11/22 08:00 History release (Cymbalta) multivitamin 1 tab PO DAILY 05/23/20 01/11/22 01/11/22 08:00 History aspirin 81 mg tablet,delayed 81 mg PO DAILY 12/16/21 01/11/22 01/11/22 08:00 History release (Adult Aspirin Regimen) sertraline 100 mg tablet 150 mg PO DAILY 12/16/21 01/11/22 01/11/22 08:00 History diazepam 5 mg tablet 5 mg PO TID PRN 01/11/22 01/11/22 01/11/22 08:00 History Physical Exam Vital Signs and Narrative: Vital Signs: Last Vital Signs Temp 98.4 F 01/12/22 06:00 Pulse 75 01/12/22 08:18 Resp 16 01/12/22 08:18 BP 142/81 H 01/12/22 08:18 Pulse Ox 98 01/12/22 06:00 BMI result Body Mass Index 24.3 Const: Other: awake alert oriented x3. No acute distress. HEENT: Other: Membranes moist Resp: Other: clear to auscultation bilaterally. No rales rhonchi or wheezes Cardio: Other: no S4; positive S1-S2; no S3 murmurs rubs or gallops GI: Other: soft nontender nondistended normoactive bowel sounds x4 Neuro: Other: Cranial nerves 2-12 grossly intact as tested. Motor is 5/5 all extremities. Sensation is intact. Gait stable. Cognition appropriate Extrem: Other: no edema bilaterally Results Labs CBC and Chem 7: 01/11/22 13:25 01/11/22 13:25 Assessment and Plan (1) MDD (major depressive disorder), recurrent episode, severe: Status: Acute Plan 71-year-old male with major depressive disorder scheduled to undergo ECT a.m. 01/13/2022. EKG with sinus Ervin otherwise no changes from 2009. Patient is a moderate but acceptable cardiovascular risk for ECT; there are no medically prohibitive issues. May proceed as outlined by Psychiatry
[2022-01-12 17:15] VITALS: BP 108/58; PULSE 65; TEMP 36.3
[2022-01-12 18:00] VITALS: BP 111/61; PULSE 75
[2022-01-13] VITALS (12 sets, daily range): BP systolic 102–148; BP diastolic 53–83; PULSE 62–84; RESP 16–23; TEMP 36.6–36.9; O2SAT 96–99
--- NOTE | 2022-01-13 06:57 | P.CONAN_ITS ---
[facility] Active Problems Active Problems: All Active Problems (Updated 01/12/22 @ 16:48 by Khalif Alexander MD) MDD (major depressive disorder), recurrent episode, severe (Acute) Depression (Acute) Suicidal ideation (Acute) Urinary tract infection (Acute) Elevated blood sugar (Acute) CAD (coronary artery disease) (Acute) Rib fractures (Acute) SVT (supraventricular tachycardia) (Acute) Abnormal Holter monitor finding (Acute) Contusion, chest wall (Acute) Generalized anxiety disorder (Acute) Chronic fatigue (Acute) Bradycardia (Acute) Essential hypertension (Acute) Rash (Acute) Tick bite (Acute) Major depression, recurrent (Acute) Insect bite (Acute) BPH (benign prostatic hyperplasia) (Chronic) Hypercholesterolemia (Acute) GERD (gastroesophageal reflux disease) (Acute) Past Medical History Medical History Finger fracture, right GERD (gastroesophageal reflux disease) Hypercholesterolemia MDD (major depressive disorder), recurrent episode, severe Rash Family History Family History Father Bladder cancer Mother No problems noted. Family history of problems with anesthesia: No Surgical History Surgical History History of eye surgery History of inguinal hernia repair History of knee surgery History of tonsillectomy History of vasectomy History of Problems with Anesthesia: No Social History Social History Household Members: Spouse Housing: House Do you presently have visiting nurse or other home services: No Alcohol intake: current Alcohol intake frequency: 0-2 drinks per day Patient Tobacco Use Status: Never used Tobacco e-Cigarette/Vaping Use: Never Used Second Hand Smoke Exposure: No Use of substances other than those prescribed or required for medical reasons: No Currently Displaying Signs/Symptoms of Drug Intoxication Withdrawal: No Have you been hit, kicked, punched, or otherwise hurt by someone within the past year? If so, by whom?: No Do you feel safe in your current relationship?: Yes Is there a partner from a previous relationship who is making you feel unsafe now?: No Are you made to feel afraid or neglected: No Advance Directives: Yes Advance Directives Information Provided: Yes Advance Directives on File: No Do you have thoughts of harming others: None Do you have a plan to hurt others: No Plan Recently lost weight without trying: No Eating poorly because of decreased appetite: No Nutrition Risks: No Nutritional Risk Poor oral hygiene: No service: Yes Current occupational status: retired Sexual orientation: Straight/Heterosexual Cognitive needs: No Hearing needs: No Vision needs: Yes Meds Allergies Allergy/AdvReac Type Severity Reaction Status Date / Time No Known Allergies Allergy Verified 01/05/22 14:20 [No Known Allergies*] Active Medications: Current Medications Acetaminophen (Acetaminophen 325 Mg Tablet) 650 mg PO Q6H PRN PRN Reason: Headache/Pain Mild Scale (1-3) Al Hydroxide/Mg Hydroxide (Magnesium Hydrox/Alum Hydrox 30 Ml Oral.Susp) 30 ml PO Q6H PRN PRN Reason: Heartburn/Nausea Aspirin (Aspirin Enteric Coated 81 Mg Tablet.) 81 mg PO DAILY [facility] Last Admin: 01/12/22 08:14 Dose: 81 mg Atorvastatin Calcium (Atorvastatin Calcium 80 Mg Tablet) 80 mg PO DAILY [facility] Last Admin: 01/12/22 08:14 Dose: 80 mg Cefuroxime Axetil (Cefuroxime Axetil 250 Mg Tablet) 250 mg PO BID [facility] Stop: 01/18/22 23:59 Last Admin: 01/12/22 20:07 Dose: 250 mg Diazepam (Diazepam 5 Mg Tablet) 5 mg PO TID PRN PRN Reason: anxiety Last Admin: 01/12/22 12:11 Dose: 5 mg Duloxetine HCl (Duloxetine Hcl 20 Mg Capsule.) 20 mg PO DAILY [facility] Stop: 01/13/22 23:50 Hydrochlorothiazide (Hydrochlorothiazide 12.5 Mg Tablet) 12.5 mg PO DAILY [facility] Last Admin: 01/12/22 08:14 Dose: 12.5 mg Hydroxyzine HCl (Hydroxyzine Hcl 25 Mg Tablet) 25 mg PO BEDTIME PRN PRN Reason: Anxiety Lisinopril (Lisinopril 20 Mg Tablet) 20 mg PO DAILY [facility] Last Admin: 01/12/22 08:15 Dose: 20 mg Magnesium Hydroxide (Milk Of Magnesia 30 Ml Oral.Susp) 30 ml PO DAILY PRN PRN Reason: Constipation Multivitamins/Vitamin C (Multivitamin Tablet) 1 tab PO DAILY [facility] Last Admin: 01/12/22 08:15 Dose: 1 tab Omeprazole (Omeprazole 40 Mg Capsule.) 40 mg PO DAILY@0630 [facility] Last Admin: 01/12/22 06:28 Dose: 40 mg Sertraline HCl (Sertraline Hcl 100 Mg Tablet) 200 mg PO DAILY [facility] Trazodone HCl (Trazodone Hcl 50 Mg Tablet) 50 mg PO BEDTIME PRN PRN Reason: Insomnia Home Medications Medication Instructions Recorded Confirmed Last Taken Type duloxetine 60 mg capsule,delayed 40 mg PO DAILY 05/23/20 01/11/22 01/11/22 08:00 History release (Cymbalta) multivitamin 1 tab PO DAILY 05/23/20 01/11/22 01/11/22 08:00 History aspirin 81 mg tablet,delayed 81 mg PO DAILY 12/16/21 01/11/22 01/11/22 08:00 History release (Adult Aspirin Regimen) sertraline 100 mg tablet 150 mg PO DAILY 12/16/21 01/11/22 01/11/22 08:00 History diazepam 5 mg tablet 5 mg PO TID PRN anxiety 01/11/22 01/11/22 01/11/22 08:00 History Exam Exam Date and Time: January 13, 2022 0657 Height,Weight and Vital Signs: Height 5 ft 8 in Weight 72.575 kg Last Vital Signs Temp 98.4 F 01/13/22 06:40 Pulse 73 01/13/22 06:40 Resp 16 01/13/22 06:40 BP 102/71 01/13/22 06:40 Pulse Ox 97 01/13/22 06:40 O2 Del Method 01/13/22 06:40 Pertinent Lab Results Pertinent Lab Results: Laboratory Tests 01/11/22 01/11/22 01/11/22 13:25 13:25 13:25 WBC 7.2 RBC 4.42 L Hgb 14.1 Hct 41.5 L MCV 93.9 MCH 31.9 MCHC 34.0 RDW 12.5 Plt Count 219 MPV 10.8 Immature Gran % (Auto) 0.3 Neut % (Auto) 73.3 H Lymph % (Auto) 16.5 L [place] % (Auto) 7.3 Eos % (Auto) 1.9 Baso % (Auto) 0.7 Lymph # (Auto) 1.2 [place] # (Auto) 0.5 Eos # (Auto) 0.1 Baso # (Auto) 0.1 Abs Immat Gran (auto) 0.02 Absolute Neuts (auto) 5.3 Absolute Nucleated RBC 0.000 Nucleated RBC % (auto) 0.0 Sodium 138 Potassium 4.0 Chloride 104 Carbon Dioxide 28 Anion Gap 10 L BUN 17 H Creatinine 1.00 Estim Creat Clear Calc 63.6 Estimated GFR > 60 Fasting Glucose 89 Calcium 9.1 D Total Bilirubin 0.3 AST 24 ALT 18 Alkaline Phosphatase 72 Total Protein 6.4 L Albumin 3.9 Urine Color Urine Appearance Urine pH Ur Specific [place] Urine Protein Urine Glucose (UA) Urine Ketones Urine Blood Urine Nitrite Ur Leukocyte Esterase Urine RBC Urine WBC Ur Squamous Epith Cells Urine Bacteria Urine Opiates Screen Urine Fentanyl Screen Ur Barbiturates Screen Ur Phencyclidine Scrn Ur Amphetamines Screen U Benzodiazepines Scrn Urine Cocaine Screen U Marijuana (THC) Screen Ethyl Alcohol COVID-19 ([facility]) Negative COVID-19 Clin Com See Note 01/11/22 01/11/22 01/11/22 13:25 13:27 13:27 WBC RBC Hgb Hct MCV MCH MCHC RDW Plt Count MPV Immature Gran % (Auto) Neut % (Auto) Lymph % (Auto) [place] % (Auto) Eos % (Auto) Baso % (Auto) Lymph # (Auto) [place] # (Auto) Eos # (Auto) Baso # (Auto) Abs Immat Gran (auto) Absolute Neuts (auto) Absolute Nucleated RBC Nucleated RBC % (auto) Sodium Potassium Chloride Carbon Dioxide Anion Gap BUN Creatinine Estim Creat Clear Calc Estimated GFR Fasting Glucose Calcium Total Bilirubin AST ALT Alkaline Phosphatase Total Protein Albumin Urine Color YELLOW Urine Appearance CLEAR Urine pH 5.5 Ur Specific [place] >= 1.030 H Urine Protein NEG Urine Glucose (UA) NEG Urine Ketones NEG Urine Blood NEG Urine Nitrite NEG Ur Leukocyte Esterase 2+ H Urine RBC 1-4 Urine WBC 15-29 H Ur Squamous Epith Cells NONE Urine Bacteria TRACE Urine Opiates Screen Not Detected Urine Fentanyl Screen Not Detected Ur Barbiturates Screen Not Detected Ur Phencyclidine Scrn Not Detected Ur Amphetamines Screen Not Detected U Benzodiazepines Scrn POSITIVE H Urine Cocaine Screen Not Detected U Marijuana (THC) Screen Not Detected Ethyl Alcohol < 10 COVID-19 ([facility]) COVID-19 Clin Com Airway Mallampati Class: II (Partial permant tooth bonded to another tooth) TM Dist: >3cm Neck ROM: Full Heart: rrr Lungs: cta Assessment and Plan Assessment Anesthesia Assessment: Anesthesia Plan Discussed and Chart Reviewed Final Anesthetic Review Family History of Problems with Anesthesia: No History of Problems with Anesthesia: No NPO: Yes ASA Class: III Final Preanesthetic Review: No Changes in Pt Med Stat, Meds/Allgs Chart Reviewed and Consent Obtained/Reviewed Patient Risk: Intermediate Procedure Risk: Intermediate Anesthetic Plan Anesthetic Plan: GA Disposition: Standard PACU
--- NOTE | 2022-01-13 07:56 | MHC.SHP ---
Pre-Procedural Eval Section A Date of Service: 01/13/22 The patient is an INPATIENT: Yes Changes since office visit: No Cold of Flu in the past 2 weeks, No New Medical Problems, No Changes in Medication and No Patient answered all questions The History & Physical has been completed within 30 days and I have reviewed it.: Yes Section B Chief Complaint: Depression, Anxiety Details of Present Illness: Hx of refractory depression Relevant Family History (Specify if Yes): No Relevant Social History: None Present Medications: see Short Stay Collaborative assessment Medical History: No relevant PMH History of Previous Operations: No relevant previous surgery Allergies: Allergies Allergy/AdvReac Type Severity Reaction Status Date / Time No Known Allergies Allergy Verified 01/05/22 14:20 [No Known Allergies*] Review of Systems Sugical H&P ROS: Negative: Constitution, Cardiovascular, Respiratory, Neurological, Psychiatric, Hem-Onc, Allergic/Immunologic, Gastrointestinal, Genitourinary, Musculoskeletal, Integumentary, Endocrine and Eyes/Ears/Nose/Throat Exam Surgical H&P Exam: Normal: HEENT, Normal: Heart, Normal: Lungs, Normal: Extremities, Normal: Abdomen, Normal: Skin and Normal: Neurological Plan Diagnosis/Plan: Unchanged I have reviewed the history and physical and performed a pertinent physical examination on my patient. No changes have occurred unless specified.
--- NOTE | 2022-01-13 08:14 | HO.ECTPROC ---
ECT Procedure Note Diagnosis/Treatment Date of Service: 01/13/22 Diagnosis: Major Depressive Disorder Current Treatment Number: 1 Treatment: Series Interval Clinical Notes: The patient reported depression that has not been relieved by medications. Never had previous ECT. Awake, alert and with capacity to sign consent for ECT. ECT Settings Device: THYMATRON DGx Electrode Placement: Right Unilateral Program/Pulse Width: 0.50 Energy Percent: 100 Seizure Duration By EEG (in seconds): 61 By Motor Observation (in seconds): 49 Medications Administration General Anesthetic: Etomidate (16) Muscle Relaxant: Succinylcholine (100) Ancillary Medications Analgesics: Torodol - Pre ECT Anti-emetics: Zofran - Pre ECT Miscillaneous Medications: Flumazenil Airway Management Airway Management: Bag Mask Ventilation Treatment Recommendations Electrode Placement: Right Unilateral Program/Pulse Width: 0.50 Energy Percent: 80 Pt Tolerated Procedure w/o Issue: Yes
[2022-01-13] MEDS: diazePAM 5 MG TABLET PO (08:58)
[2022-01-13] MEDS: lisinopriL 20 MG TABLET PO (09:17)
[2022-01-13] MEDS: Sertraline HCL 100 MG TABLET 200 MG PO (09:17)
[2022-01-13] MEDS: Omeprazole 40 MG CAPSULE.DR PO (09:17)
[2022-01-13] MEDS: DULoxetine HCl 20 MG CAPSULE.DR PO (09:18)
[2022-01-13] MEDS: Multivitamin TABLET 1 TAB PO (09:18)
[2022-01-13] MEDS: Aspirin Enteric Coated 81 MG TABLET.DR PO (09:18)
[2022-01-13] MEDS: hydroCHLOROthiazide 12.5 MG TABLET PO (09:18)
[2022-01-13] MEDS: Atorvastatin Calcium 80 MG TABLET PO (09:18)
[2022-01-13] MEDS: Ondansetron ODT 4 MG TAB.RAPDIS TRANSLINGU (09:42)
--- NOTE | 2022-01-13 10:32 | P.PNPSI_ITS ---
Subjective Subjective Date of Service: 01/13/22 Reason For Visit: Depression, Anxiety Interim History: Patient completed 1st session of ECT today. He had a little nausea afterwards but otherwise said he feels fine. Patient said currently his mood is a little better which he thinks is most likely due to the fact that he is starting treatment and is hopeful about it. Patient denies any passive wish. Denies feeling overly anxious and denies any withdrawal from Flumanzenil used during ECT to overcome diazepam. Rn Physician Office met with patient and his later on and both are grateful he is starting on ECT. Patient asks if he can discharge after Fridays ECT and continue treatment as an outpatient. His also feels this is appropriate and is happy to drive him to and from. Patient knows that throughout the duration of ECT treatment he is not able to drive including in between treatments and he accepts this. Both patient and his feel the patient is able to remain safe at home. Agrees to fully discontinue Cymbalta and stay at sertraline 200 mg for now and to go up on as an outpatient if needed. Mental Status Exam Mental Status Exam Narrative: Pt is alert and oriented; behavior is cooperative and calm; patient is not in distress; dressed in hospital gown, well groomed; mood is described as ok and affect a little blunted; eye contact appropriate; Speech is normal rate, volume and prosody and not pressured; some psychomotor retardation present; thought process is organized and goal directed; Thought content is on tx, feeling more hopeful; no passive wish; no SI; no HI; otherwise pertinent to relevant topics and without any delusional content, paranoid ideations or grandiosity; There is no evidence of perceptual disturbance. Patients insight and judgment are impaired but improving. Diagnostics Vital Signs (24Hr): Vital Signs - 24 hr 01/12/22 17:15 01/12/22 18:00 01/13/22 06:34 Temperature 97.3 F 98.4 F Pulse Rate 65 75 73 Respiratory Rate 16 Blood Pressure 108/58 L 111/61 102/71 Pulse Oximetry 97 Oxygen Delivery Method Oxygen Flow Rate 01/13/22 06:00 01/13/22 06:40 01/13/22 07:01 Temperature 98.4 F 98.4 F 98.4 F Pulse Rate 73 73 62 Respiratory Rate 16 16 18 Blood Pressure 102/71 102/71 122/70 Pulse Oximetry 97 97 97 Oxygen Delivery Method Room Air Room Air Oxygen Flow Rate 01/13/22 08:21 01/13/22 08:26 01/13/22 08:31 Temperature 98.1 F Pulse Rate 84 77 84 Respiratory Rate 23 H 19 18 Blood Pressure 148/83 H 144/81 H 144/80 H Pulse Oximetry 98 98 96 Oxygen Delivery Method Nasal Cannula Nasal Cannula Nasal Cannula Oxygen Flow Rate 2 2 2 01/13/22 08:36 01/13/22 08:51 01/13/22 09:06 Temperature 98.1 F Pulse Rate 84 76 69 Respiratory Rate 20 20 18 Blood Pressure 135/81 127/77 129/77 Pulse Oximetry 96 96 96 Oxygen Delivery Method Room Air Room Air Room Air Oxygen Flow Rate 01/13/22 09:25 Temperature 97.8 F Pulse Rate 68 Respiratory Rate 16 Blood Pressure 123/80 Pulse Oximetry Oxygen Delivery Method Oxygen Flow Rate BMI result Body Mass Index 24.3 Labs Results: 01/11/22 13:25 01/11/22 13:25 Labs: Laboratory Results - last 48 hr 01/11/22 01/11/22 01/11/22 13:25 13:25 13:25 WBC 7.2 RBC 4.42 L Hgb 14.1 Hct 41.5 L MCV 93.9 MCH 31.9 MCHC 34.0 RDW 12.5 Plt Count 219 MPV 10.8 Immature Gran % (Auto) 0.3 Neut % (Auto) 73.3 H Lymph % (Auto) 16.5 L Mccone % (Auto) 7.3 Eos % (Auto) 1.9 Baso % (Auto) 0.7 Lymph # (Auto) 1.2 Mccone # (Auto) 0.5 Eos # (Auto) 0.1 Baso # (Auto) 0.1 Abs Immat Gran (auto) 0.02 Absolute Neuts (auto) 5.3 Absolute Nucleated RBC 0.000 Nucleated RBC % (auto) 0.0 Sodium 138 Potassium 4.0 Chloride 104 Carbon Dioxide 28 Anion Gap 10 L BUN 17 H Creatinine 1.00 Estim Creat Clear Calc 63.6 Estimated GFR > 60 Fasting Glucose 89 Calcium 9.1 D Total Bilirubin 0.3 AST 24 ALT 18 Alkaline Phosphatase 72 Total Protein 6.4 L Albumin 3.9 Urine Color Urine Appearance Urine pH Ur Specific [employer] Urine Protein Urine Glucose (UA) Urine Ketones Urine Blood Urine Nitrite Ur Leukocyte Esterase Urine RBC Urine WBC Ur Squamous Epith Cells Urine Bacteria Urine Opiates Screen Urine Fentanyl Screen Ur Barbiturates Screen Ur Phencyclidine Scrn Ur Amphetamines Screen U Benzodiazepines Scrn Urine Cocaine Screen U Marijuana (THC) Screen Ethyl Alcohol COVID-19 ([facility]) Negative COVID-19 Clin Com See Note 01/11/22 01/11/22 01/11/22 13:25 13:27 13:27 WBC RBC Hgb Hct MCV MCH MCHC RDW Plt Count MPV Immature Gran % (Auto) Neut % (Auto) Lymph % (Auto) Mccone % (Auto) Eos % (Auto) Baso % (Auto) Lymph # (Auto) Mccone # (Auto) Eos # (Auto) Baso # (Auto) Abs Immat Gran (auto) Absolute Neuts (auto) Absolute Nucleated RBC Nucleated RBC % (auto) Sodium Potassium Chloride Carbon Dioxide Anion Gap BUN Creatinine Estim Creat Clear Calc Estimated GFR Fasting Glucose Calcium Total Bilirubin AST ALT Alkaline Phosphatase Total Protein Albumin Urine Color YELLOW Urine Appearance CLEAR Urine pH 5.5 Ur Specific [employer] >= 1.030 H Urine Protein NEG Urine Glucose (UA) NEG Urine Ketones NEG Urine Blood NEG Urine Nitrite NEG Ur Leukocyte Esterase 2+ H Urine RBC 1-4 Urine WBC 15-29 H Ur Squamous Epith Cells NONE Urine Bacteria TRACE Urine Opiates Screen Not Detected Urine Fentanyl Screen Not Detected Ur Barbiturates Screen Not Detected Ur Phencyclidine Scrn Not Detected Ur Amphetamines Screen Not Detected U Benzodiazepines Scrn POSITIVE H Urine Cocaine Screen Not Detected U Marijuana (THC) Screen Not Detected Ethyl Alcohol < 10 COVID-19 ([facility]) COVID-19 Clin Com Medications Medications Current Medications Acetaminophen (Acetaminophen 325 Mg Tablet) 650 mg PO Q6H PRN PRN Reason: Headache/Pain Mild Scale (1-3) Al Hydroxide/Mg Hydroxide (Magnesium Hydrox/Alum Hydrox 30 Ml Oral.Susp) 30 ml PO Q6H PRN PRN Reason: Heartburn/Nausea Aspirin (Aspirin Enteric Coated 81 Mg Tablet.Dr) 81 mg PO DAILY [facility] Last Admin: 01/13/22 09:18 Dose: 81 mg Atorvastatin Calcium (Atorvastatin Calcium 80 Mg Tablet) 80 mg PO DAILY [facility] Last Admin: 01/13/22 09:18 Dose: 80 mg Cefuroxime Axetil (Cefuroxime Axetil 250 Mg Tablet) 250 mg PO BID [facility] Stop: 01/18/22 23:59 Last Admin: 01/13/22 09:18 Dose: 250 mg Diazepam (Diazepam 5 Mg Tablet) 5 mg PO TID PRN PRN Reason: anxiety Last Admin: 01/13/22 08:58 Dose: 5 mg Duloxetine HCl (Duloxetine Hcl 20 Mg Capsule.Dr) 20 mg PO DAILY [facility] Stop: 01/13/22 23:50 Last Admin: 01/13/22 09:18 Dose: 20 mg Hydrochlorothiazide (Hydrochlorothiazide 12.5 Mg Tablet) 12.5 mg PO DAILY [facility] Last Admin: 01/13/22 09:18 Dose: 12.5 mg Hydroxyzine HCl (Hydroxyzine Hcl 25 Mg Tablet) 25 mg PO BEDTIME PRN PRN Reason: Anxiety Lisinopril (Lisinopril 20 Mg Tablet) 20 mg PO DAILY [facility] Last Admin: 01/13/22 09:17 Dose: 20 mg Magnesium Hydroxide (Milk Of Magnesia 30 Ml Oral.Susp) 30 ml PO DAILY PRN PRN Reason: Constipation Multivitamins/Vitamin C (Multivitamin Tablet) 1 tab PO DAILY [facility] Last Admin: 01/13/22 09:18 Dose: 1 tab Omeprazole (Omeprazole 40 Mg Capsule.Dr) 40 mg PO DAILY@0630 [facility] Last Admin: 01/13/22 09:17 Dose: 40 mg Ondansetron HCl (Ondansetron Odt 4 Mg Tab.Rapdis) 4 mg TRANSLINGU Q6H PRN PRN Reason: Nausea Sertraline HCl (Sertraline Hcl 100 Mg Tablet) 200 mg PO DAILY [facility] Last Admin: 01/13/22 09:17 Dose: 200 mg Trazodone HCl (Trazodone Hcl 50 Mg Tablet) 50 mg PO BEDTIME PRN PRN Reason: Insomnia Allergies Allergies Allergy/AdvReac Type Severity Reaction Status Date / Time No Known Allergies Allergy Verified 01/05/22 14:20 [No Known Allergies*] Assessment & Plan Assessment & Plan (1) MDD (major depressive disorder), recurrent episode, severe: Status: Acute Code(s): F33.2 - Major depressive disorder, recurrent severe without psychotic features Plan HPI: pt is a 71 yo With CAD, SVT, current UTI and long history of refractory depression and anxiety, having failed numerous medication trials who presents for worsening depression with increased passive wish and wanting ECT. -patient is candidate for ECT --passive wish which is uncharacteristic for patient and prompted presentation to the emergency room to expedite ECT -he is currently being cross titrated coming down off Cymbalta back on to Zoloft and will continue this here. 01/13 ECT tolerated; patient has little side effects and wants to continue with treatment. Would like to do so as an outpatient after Fridays ECT; visited who is supportive and agrees that patient is safe and appropriate to come home. Patient denies any SI and passive wish currently resolved as patient is a little more hopeful. Will continue to cross titrate Cymbalta and Zoloft. Patient agrees to hold off from diazepam night before ECT. Also discussed long- term risks of this medication and he agrees to try and see if he can cut down on its use and maybe even discontinue. PLAN: CV? Q 15 minute checks ECT #1 complete on 01/13/22 ECT #1 PENDING 01/13/22 NPO after midnight. DC Cymbalta Keep Zoloft at 200mg (outpatient provider has been cross titrating these 2 meds) continue other home meds I spent minutes with the patient and/or on the patient floor today, greater than?50% of which was spent counseling/coordinating care. Patient educated on: diagnosis, medication risk/benefits and ECT Informed Consent: understands Reason for contiued inpatient stay Substantial Risk for: med/psych decompensation
[2022-01-13] MEDS: Milk of Magnesia 30 ML ORAL.SUSP PO (13:01)
[2022-01-13] MEDS: traZODone HCL 50 MG TABLET PO (22:46)
[2022-01-14 06:43] VITALS: BP 90/59; PULSE 75; RESP 18; TEMP 36.8; O2SAT 96
[2022-01-14] MEDS: Omeprazole 40 MG CAPSULE.DR PO (06:44)
[2022-01-14] MEDS: Atorvastatin Calcium 80 MG TABLET PO (09:00)
[2022-01-14] MEDS: Sertraline HCL 100 MG TABLET 200 MG PO (09:00)
[2022-01-14] MEDS: hydroCHLOROthiazide 12.5 MG TABLET PO (09:00)
[2022-01-14] MEDS: Aspirin Enteric Coated 81 MG TABLET.DR PO (09:00)
[2022-01-14] MEDS: Multivitamin TABLET 1 TAB PO (09:00)
[2022-01-14] MEDS: lisinopriL 20 MG TABLET PO (09:01)
[2022-01-14 09:04] VITALS: BMI 23.1
[2022-01-14 09:05] VITALS: BP 132/65; PULSE 80; RESP 20; TEMP 36.3; O2SAT 95
[2022-01-14] MEDS: diazePAM 5 MG TABLET PO (09:59)
--- NOTE | 2022-01-14 10:01 | HO.PSYCHPN ---
Subjective Subjective Date of Service: 01/14/22 Reason For Visit: Depression, Anxiety Interim History: Patient says his mood is a little better and denies any SI. Would like to continue with ECT and discharge after ECT on Tuesday. No complaints no requests. Patient agrees to continue Zoloft 200 mg and denies any medication side effect. He reiterates that he will stay safe at home. Mental Status Exam Mental Status Exam Narrative: Pt is alert and oriented; behavior is cooperative and calm; patient is not in distress; dressed in hospital gown, well groomed; mood is described as ok and affect a little blunted but more expressive than on admission; eye contact appropriate; Speech is normal rate, volume and prosody and not pressured; some psychomotor retardation present; thought process is organized and goal directed; Thought content is on tx, feeling more hopeful; no passive wish; no SI; no HI; otherwise pertinent to relevant topics and without any delusional content, paranoid ideations or grandiosity; There is no evidence of perceptual disturbance. Patients insight and judgment are fair. Diagnostics Vital Signs (24Hr): Vital Signs - 24 hr 01/13/22 21:30 01/14/22 06:43 01/14/22 09:05 Temperature 98.3 F 98.3 F 97.4 F Pulse Rate 72 75 80 Respiratory Rate 18 20 Blood Pressure 115/53 L 90/59 L 132/65 Pulse Oximetry 99 96 95 Oxygen Delivery Method Room Air Room Air Room Air BMI result Body Mass Index 23.1 Labs Results: 01/11/22 13:25 01/11/22 13:25 Medications Medications Current Medications Acetaminophen (Acetaminophen 325 Mg Tablet) 650 mg PO Q6H PRN PRN Reason: Headache/Pain Mild Scale (1-3) Al Hydroxide/Mg Hydroxide (Magnesium Hydrox/Alum Hydrox 30 Ml Oral.Susp) 30 ml PO Q6H PRN PRN Reason: Heartburn/Nausea Aspirin (Aspirin Enteric Coated 81 Mg Tablet.) 81 mg PO DAILY REPLACED BY [facility] Last Admin: 01/14/22 09:00 Dose: 81 mg Atorvastatin Calcium (Atorvastatin Calcium 80 Mg Tablet) 80 mg PO DAILY REPLACED BY [facility] Last Admin: 01/14/22 09:00 Dose: 80 mg Cefuroxime Axetil (Cefuroxime Axetil 250 Mg Tablet) 250 mg PO BID REPLACED BY [facility] Stop: 01/18/22 23:59 Last Admin: 01/14/22 09:01 Dose: 250 mg Diazepam (Diazepam 5 Mg Tablet) 5 mg PO TID PRN PRN Reason: anxiety Last Admin: 01/14/22 09:59 Dose: 5 mg Hydrochlorothiazide (Hydrochlorothiazide 12.5 Mg Tablet) 12.5 mg PO DAILY REPLACED BY [facility] Last Admin: 01/14/22 09:00 Dose: 12.5 mg Hydroxyzine HCl (Hydroxyzine Hcl 25 Mg Tablet) 25 mg PO BEDTIME PRN PRN Reason: Anxiety Lisinopril (Lisinopril 20 Mg Tablet) 20 mg PO DAILY REPLACED BY [facility] Last Admin: 01/14/22 09:01 Dose: 20 mg Magnesium Hydroxide (Milk Of Magnesia 30 Ml Oral.Susp) 30 ml PO DAILY PRN PRN Reason: Constipation Last Admin: 01/13/22 13:01 Dose: 30 ml Multivitamins/Vitamin C (Multivitamin Tablet) 1 tab PO DAILY REPLACED BY [facility] Last Admin: 01/14/22 09:00 Dose: 1 tab Omeprazole (Omeprazole 40 Mg Capsule.Dr) 40 mg PO DAILY@0630 REPLACED BY [facility] Last Admin: 01/14/22 06:44 Dose: 40 mg Ondansetron HCl (Ondansetron Odt 4 Mg Tab.Rapdis) 4 mg TRANSLINGU Q6H PRN PRN Reason: Nausea Sertraline HCl (Sertraline Hcl 100 Mg Tablet) 200 mg PO DAILY REPLACED BY [facility] Last Admin: 01/14/22 09:00 Dose: 200 mg Trazodone HCl (Trazodone Hcl 50 Mg Tablet) 50 mg PO BEDTIME PRN PRN Reason: Insomnia Last Admin: 01/13/22 22:46 Dose: 50 mg Allergies Allergies Allergy/AdvReac Type Severity Reaction Status Date / Time No Known Allergies Allergy Verified 01/05/22 14:20 [No Known Allergies*] Assessment & Plan Assessment & Plan (1) MDD (major depressive disorder), recurrent episode, severe: Status: Acute Code(s): F33.2 - Major depressive disorder, recurrent severe without psychotic features Plan HPI: pt is a 71 yo With CAD, SVT, current UTI and long history of refractory depression and anxiety, having failed numerous medication trials who presents for worsening depression with increased passive wish and wanting ECT. -patient is candidate for ECT --passive wish which is uncharacteristic for patient and prompted presentation to the emergency room to expedite ECT -he is currently being cross titrated coming down off Cymbalta back on to Zoloft and will continue this here. 01/13 ECT tolerated; patient has little side effects and wants to continue with treatment. Would like to do so as an outpatient after Fridays ECT; visited who is supportive and agrees that patient is safe and appropriate to come home. Patient denies any SI and passive wish currently resolved as patient is a little more hopeful. Will continue to cross titrate Cymbalta and Zoloft. Patient agrees to hold off from diazepam night before ECT. Also discussed long-term risks of this medication and he agrees to try and see if he can cut down on its use and maybe even discontinue. 01/14 mood has improved a little and patient is hopeful. Wants to continue with ECT as an outpatient but go home this Tuesday after ECT. Patient's met with team and agrees that patient is safe to come home and she will be able to drive him to and from ECT. Patient is not in imminent risk of harm to self or others and his request for discharge honored. PLAN: CV? Q 15 minute checks ECT #1 complete on 01/13/22 ECT #1 complete on 01/13/22 ECT #1 PENDING 01/15/22 NPO after midnight. DC Cymbalta Keep Zoloft at 200mg (outpatient provider has been cross titrating these 2 meds) continue other home meds I spent minutes with the patient and/or on the patient floor today, greater than?50% of which was spent counseling/coordinating care. Patient educated on: diagnosis, medication risk/benefits and ECT Informed Consent: understands Reason for contiued inpatient stay Substantial Risk for: stable for discharge
[2022-01-14] MEDS: Magnesium Citrate 300 ML SOLUTION PO (12:00)
[2022-01-14 20:01] VITALS: BP 98/62; PULSE 66; RESP 18; TEMP 36.6; O2SAT 95
[2022-01-15] VITALS (8 sets, daily range): BP systolic 109–158; BP diastolic 58–92; PULSE 57–87; RESP 12–20; TEMP 36.2–37.1; O2SAT 95–98
--- NOTE | 2022-01-15 06:57 | P.CONAN_ITS ---
HPI - Anesthesia Eval Consult details Narrative: Major depressive disorder PMF Active Problems Active Problems: All Active Problems (Updated 01/12/22 @ 16:48 by Khalif Alexander MD) MDD (major depressive disorder), recurrent episode, severe (Acute) Depression (Acute) Suicidal ideation (Acute) Urinary tract infection (Acute) Elevated blood sugar (Acute) CAD (coronary artery disease) (Acute) Rib fractures (Acute) SVT (supraventricular tachycardia) (Acute) Abnormal Holter monitor finding (Acute) Contusion, chest wall (Acute) Generalized anxiety disorder (Acute) Chronic fatigue (Acute) Bradycardia (Acute) Essential hypertension (Acute) Rash (Acute) Tick bite (Acute) Major depression, recurrent (Acute) Insect bite (Acute) BPH (benign prostatic hyperplasia) (Chronic) Hypercholesterolemia (Acute) GERD (gastroesophageal reflux disease) (Acute) Past Medical History Medical History Finger fracture, right GERD (gastroesophageal reflux disease) Hypercholesterolemia MDD (major depressive disorder), recurrent episode, severe Rash Family History Family History Father Bladder cancer Mother No problems noted. Family history of problems with anesthesia: No Surgical History Surgical History History of eye surgery History of inguinal hernia repair History of knee surgery History of tonsillectomy History of vasectomy History of Problems with Anesthesia: No Social History Social History Household Members: Spouse Housing: House Do you presently have visiting nurse or other home services: No Alcohol intake: current Alcohol intake frequency: 0-2 drinks per day Patient Tobacco Use Status: Never used Tobacco e-Cigarette/Vaping Use: Never Used Second Hand Smoke Exposure: No service: Yes Current occupational status: retired Sexual orientation: Straight/Heterosexual Cognitive needs: No Hearing needs: No Vision needs: Yes Meds Allergies Allergy/AdvReac Type Severity Reaction Status Date / Time No Known Allergies Allergy Verified 01/05/22 14:20 [No Known Allergies*] Active Medications: Current Medications Acetaminophen (Acetaminophen 325 Mg Tablet) 650 mg PO Q6H PRN PRN Reason: Headache/Pain Mild Scale (1-3) Al Hydroxide/Mg Hydroxide (Magnesium Hydrox/Alum Hydrox 30 Ml Oral.Susp) 30 ml PO Q6H PRN PRN Reason: Heartburn/Nausea Aspirin (Aspirin Enteric Coated 81 Mg Tablet.) 81 mg PO DAILY [facility] Last Admin: 01/14/22 09:00 Dose: 81 mg Atorvastatin Calcium (Atorvastatin Calcium 80 Mg Tablet) 80 mg PO DAILY [facility] Last Admin: 01/14/22 09:00 Dose: 80 mg Cefuroxime Axetil (Cefuroxime Axetil 250 Mg Tablet) 250 mg PO BID [facility] Stop: 01/18/22 23:59 Last Admin: 01/14/22 20:02 Dose: 250 mg Diazepam (Diazepam 5 Mg Tablet) 5 mg PO TID PRN PRN Reason: anxiety Last Admin: 01/14/22 09:59 Dose: 5 mg Hydrochlorothiazide (Hydrochlorothiazide 12.5 Mg Tablet) 12.5 mg PO DAILY [facility] Last Admin: 01/14/22 09:00 Dose: 12.5 mg Hydroxyzine HCl (Hydroxyzine Hcl 25 Mg Tablet) 25 mg PO BEDTIME PRN PRN Reason: Anxiety Lisinopril (Lisinopril 20 Mg Tablet) 20 mg PO DAILY [facility] Last Admin: 01/14/22 09:01 Dose: 20 mg Magnesium Hydroxide (Milk Of Magnesia 30 Ml Oral.Susp) 30 ml PO DAILY PRN PRN Reason: Constipation Last Admin: 01/13/22 13:01 Dose: 30 ml Multivitamins/Vitamin C (Multivitamin Tablet) 1 tab PO DAILY [facility] Last Admin: 01/14/22 09:00 Dose: 1 tab Omeprazole (Omeprazole 40 Mg Capsule.) 40 mg PO DAILY@0630 [facility] Last Admin: 01/14/22 06:44 Dose: 40 mg Ondansetron HCl (Ondansetron Odt 4 Mg Tab.Rapdis) 4 mg TRANSLINGU Q6H PRN PRN Reason: Nausea Sertraline HCl (Sertraline Hcl 100 Mg Tablet) 200 mg PO DAILY [facility] Last Admin: 01/14/22 09:00 Dose: 200 mg Trazodone HCl (Trazodone Hcl 50 Mg Tablet) 50 mg PO BEDTIME PRN PRN Reason: Insomnia Last Admin: 01/13/22 22:46 Dose: 50 mg Home Medications Medication Instructions Recorded Confirmed Last Taken Type duloxetine 60 mg capsule,delayed 40 mg PO DAILY 10/01/11/22 01/11/22 08:00 History release (Cymbalta) multivitamin 1 tab PO DAILY 05/23/20 01/11/22 01/11/22 08:00 History aspirin 81 mg tablet,delayed 81 mg PO DAILY 12/16/21 01/11/22 01/11/22 08:00 History release (Adult Aspirin Regimen) sertraline 100 mg tablet 150 mg PO DAILY 12/16/21 01/11/22 01/11/22 08:00 History diazepam 5 mg tablet 5 mg PO TID PRN anxiety 01/11/22 01/11/22 01/11/22 08:00 History Exam Exam Date and Time: January 15, 2022 0657 Height,Weight and Vital Signs: Height 5 ft 8 in Weight 69 kg Last Vital Signs Temp 97.8 F 01/15/22 06:54 Pulse 57 01/15/22 06:54 Resp 18 01/15/22 06:54 BP 110/70 01/15/22 06:54 Pulse Ox 96 01/15/22 06:54 O2 Del Method 01/15/22 06:54 O2 Flow Rate 2 01/13/22 08:31 Pertinent Lab Results Pertinent Lab Results: Laboratory Tests 01/11/22 01/11/22 01/11/22 13:25 13:25 13:25 WBC 7.2 RBC 4.42 L Hgb 14.1 Hct 41.5 L MCV 93.9 MCH 31.9 MCHC 34.0 RDW 12.5 Plt Count 219 MPV 10.8 Immature Gran % (Auto) 0.3 Neut % (Auto) 73.3 H Lymph % (Auto) 16.5 L [place] % (Auto) 7.3 Eos % (Auto) 1.9 Baso % (Auto) 0.7 Lymph # (Auto) 1.2 [place] # (Auto) 0.5 Eos # (Auto) 0.1 Baso # (Auto) 0.1 Abs Immat Gran (auto) 0.02 Absolute Neuts (auto) 5.3 Absolute Nucleated RBC 0.000 Nucleated RBC % (auto) 0.0 Sodium 138 Potassium 4.0 Chloride 104 Carbon Dioxide 28 Anion Gap 10 L BUN 17 H Creatinine 1.00 Estim Creat Clear Calc 63.6 Estimated GFR > 60 Fasting Glucose 89 Calcium 9.1 D Total Bilirubin 0.3 AST 24 ALT 18 Alkaline Phosphatase 72 Total Protein 6.4 L Albumin 3.9 Urine Color Urine Appearance Urine pH Ur Specific [place] Urine Protein Urine Glucose (UA) Urine Ketones Urine Blood Urine Nitrite Ur Leukocyte Esterase Urine RBC Urine WBC Ur Squamous Epith Cells Urine Bacteria Urine Opiates Screen Urine Fentanyl Screen Ur Barbiturates Screen Ur Phencyclidine Scrn Ur Amphetamines Screen U Benzodiazepines Scrn Urine Cocaine Screen U Marijuana (THC) Screen Ethyl Alcohol COVID-19 ([facility]) Negative COVID-19 Clin Com See Note 01/11/22 01/11/22 01/11/22 13:25 13:27 13:27 WBC RBC Hgb Hct MCV MCH MCHC RDW Plt Count MPV Immature Gran % (Auto) Neut % (Auto) Lymph % (Auto) [place] % (Auto) Eos % (Auto) Baso % (Auto) Lymph # (Auto) [place] # (Auto) Eos # (Auto) Baso # (Auto) Abs Immat Gran (auto) Absolute Neuts (auto) Absolute Nucleated RBC Nucleated RBC % (auto) Sodium Potassium Chloride Carbon Dioxide Anion Gap BUN Creatinine Estim Creat Clear Calc Estimated GFR Fasting Glucose Calcium Total Bilirubin AST ALT Alkaline Phosphatase Total Protein Albumin Urine Color YELLOW Urine Appearance CLEAR Urine pH 5.5 Ur Specific [place] >= 1.030 H Urine Protein NEG Urine Glucose (UA) NEG Urine Ketones NEG Urine Blood NEG Urine Nitrite NEG Ur Leukocyte Esterase 2+ H Urine RBC 1-4 Urine WBC 15-29 H Ur Squamous Epith Cells NONE Urine Bacteria TRACE Urine Opiates Screen Not Detected Urine Fentanyl Screen Not Detected Ur Barbiturates Screen Not Detected Ur Phencyclidine Scrn Not Detected Ur Amphetamines Screen Not Detected U Benzodiazepines Scrn POSITIVE H Urine Cocaine Screen Not Detected U Marijuana (THC) Screen Not Detected Ethyl Alcohol < 10 COVID-19 ([facility]) COVID-19 Clin Com Airway Mallampati Class: II TM Dist: >3cm Neck ROM: Full Loose/Missing/Broken Teeth: Yes ((Partial permant tooth bonded to another tooth)) Heart: [id number] Lungs: cta b/l Assessment and Plan Assessment Anesthesia Assessment: Anesthesia Plan Discussed and Chart Reviewed Final Anesthetic Review Family History of Problems with Anesthesia: No History of Problems with Anesthesia: No NPO: Yes ASA Class: III Final Preanesthetic Review: No Changes in Pt Med Stat, Meds/Allgs Chart Reviewed, Consent Obtained/Reviewed and Anes Risks/Benef Reviewed Patient Risk: Intermediate Procedure Risk: Intermediate Assessment/Block/Sedation in SS: Assess/Block/Sedation-SS Anesthetic Plan Anesthetic Plan: GA and Agree w/ Assess. and Plan Disposition: Standard PACU
--- NOTE | 2022-01-15 08:27 | HO.ECTPROC ---
ECT Procedure Note Diagnosis/Treatment Date of Service: 01/15/22 Diagnosis: Major Depressive Disorder Previous ECT Date: 01/13/22 Current Treatment Number: 2 Treatment: Series Interval Clinical Notes: The patient reported no new side effects with the previous ECT. Stlll depressed. ECT Settings Device: THYMATRON DGx Electrode Placement: Right Unilateral Program/Pulse Width: 0.50 Energy Percent: 100 Seizure Duration By EEG (in seconds): 44 By Motor Observation (in seconds): 29 Medications Administration General Anesthetic: Etomidate (16) Muscle Relaxant: Succinylcholine (100) Ancillary Medications Analgesics: Torodol - Pre ECT Anti-emetics: Zofran - Pre ECT Airway Management Airway Management: Bag Mask Ventilation Treatment Recommendations No Changes Recommended: No change Pt Tolerated Procedure w/o Issue: Yes
[2022-01-15] MEDS: Multivitamin TABLET 1 TAB PO (09:41)
[2022-01-15] MEDS: Omeprazole 40 MG CAPSULE.DR PO (09:41)
[2022-01-15] MEDS: Sertraline HCL 100 MG TABLET 200 MG PO (09:41)
[2022-01-15] MEDS: hydroCHLOROthiazide 12.5 MG TABLET PO (09:42)
[2022-01-15] MEDS: Atorvastatin Calcium 80 MG TABLET PO (09:42)
[2022-01-15] MEDS: lisinopriL 20 MG TABLET PO (09:42)
[2022-01-15] MEDS: Aspirin Enteric Coated 81 MG TABLET.DR PO (09:42)
[2022-01-15] MEDS: Acetaminophen 325 MG TABLET 650 MG PO (10:15)
--- NOTE | 2022-01-15 11:26 | P.DS_ITS ---
DS: Providers Provider Date of Service: 01/15/22 Date of admission: 01/11/22 17:31 Date of discharge: 01/15/22 Primary care physician: Rojelio Montanez MD Attending physician on admission: Khalif Alexander Consults: 01/12/22 11:47 Consult to Hospitalist Routine Consulting Provider: Hospitalist Reason For Exam: ECT clearance Attending physician on discharge: Khalif Alexander DS: Diagnosis Discharge Diagnosis (1) MDD (major depressive disorder), recurrent episode, severe: Status: Acute DS: Medications Discharge Medications Home Medications: Home Medications Medication Instructions Recorded Confirmed multivitamin 1 tab PO DAILY 05/23/20 01/11/22 aspirin 81 mg tablet,delayed 81 mg PO DAILY 12/16/21 01/11/22 release (Adult Aspirin Regimen) diazepam 5 mg tablet 5 mg PO TID PRN anxiety 01/11/22 01/11/22 Previous Rx's Medication Instructions Recorded lisinopril 20 1 tab PO DAILY #90 tabs 09/14/21 mg-hydrochlorothiazide 12.5 mg tablet omeprazole 40 mg capsule,delayed 40 mg PO DAILY #90 caps 12/04/21 release atorvastatin 80 mg tablet 80 mg PO DAILY 90 days #90 tabs 12/16/21 cefuroxime axetil 250 mg tablet 250 mg PO BID 4 days #7 tabs 01/15/22 sertraline 100 mg tablet 200 mg PO DAILY 30 days #60 tabs 01/15/22 Mental Status Exam Mental Status Exam Narrative: Pt is alert and oriented; behavior is cooperative and calm; patient is not in distress; dressed in casual cloths, well groomed; mood is described as ok and affect calm and expressive; eye contact appropriate; Speech is normal rate, volume and prosody and not pressured; no psychomotor retardation present; thought process is organized and goal directed; Thought content is on tx, feeling more hopeful; no passive wish; no SI; no HI; otherwise pertinent to relevant topics and without any delusional content, paranoid ideations or grandiosity; There is no evidence of perceptual disturbance. Patients insight and judgment are fair. Data Data Completed and Pending Completed studies during hospitalization [Text1]: 01/11/22 01/11/22 01/11/22 13:25 13:25 13:25 WBC 7.2 RBC 4.42 L Hgb 14.1 Hct 41.5 L MCV 93.9 MCH 31.9 MCHC 34.0 RDW 12.5 Plt Count 219 MPV 10.8 Immature Gran % (Auto) 0.3 Neut % (Auto) 73.3 H Lymph % (Auto) 16.5 L [place] % (Auto) 7.3 Eos % (Auto) 1.9 Baso % (Auto) 0.7 Lymph # (Auto) 1.2 [place] # (Auto) 0.5 Eos # (Auto) 0.1 Baso # (Auto) 0.1 Abs Immat Gran (auto) 0.02 Absolute Neuts (auto) 5.3 Absolute Nucleated RBC 0.000 Nucleated RBC % (auto) 0.0 Sodium 138 Potassium 4.0 Chloride 104 Carbon Dioxide 28 Anion Gap 10 L BUN 17 H Creatinine 1.00 Estim Creat Clear Calc 63.6 Estimated GFR > 60 Fasting Glucose 89 Calcium 9.1 D Total Bilirubin 0.3 AST 24 ALT 18 Alkaline Phosphatase 72 Total Protein 6.4 L Albumin 3.9 Urine Color Urine Appearance Urine pH Ur Specific [place] Urine Protein Urine Glucose (UA) Urine Ketones Urine Blood Urine Nitrite Ur Leukocyte Esterase Urine RBC Urine WBC Ur Squamous Epith Cells Urine Bacteria Urine Opiates Screen Urine Fentanyl Screen Ur Barbiturates Screen Ur Phencyclidine Scrn Ur Amphetamines Screen U Benzodiazepines Scrn Urine Cocaine Screen U Marijuana (THC) Screen Ethyl Alcohol COVID-19 ([facility]) Negative COVID-19 Clin Com See Note 01/11/22 01/11/22 01/11/22 13:25 13:27 13:27 WBC RBC Hgb Hct MCV MCH MCHC RDW Plt Count MPV Immature Gran % (Auto) Neut % (Auto) Lymph % (Auto) [place] % (Auto) Eos % (Auto) Baso % (Auto) Lymph # (Auto) [place] # (Auto) Eos # (Auto) Baso # (Auto) Abs Immat Gran (auto) Absolute Neuts (auto) Absolute Nucleated RBC Nucleated RBC % (auto) Sodium Potassium Chloride Carbon Dioxide Anion Gap BUN Creatinine Estim Creat Clear Calc Estimated GFR Fasting Glucose Calcium Total Bilirubin AST ALT Alkaline Phosphatase Total Protein Albumin Urine Color YELLOW Urine Appearance CLEAR Urine pH 5.5 Ur Specific [place] >= 1.030 H Urine Protein NEG Urine Glucose (UA) NEG Urine Ketones NEG Urine Blood NEG Urine Nitrite NEG Ur Leukocyte Esterase 2+ H Urine RBC 1-4 Urine WBC 15-29 H Ur Squamous Epith Cells NONE Urine Bacteria TRACE Urine Opiates Screen Not Detected Urine Fentanyl Screen Not Detected Ur Barbiturates Screen Not Detected Ur Phencyclidine Scrn Not Detected Ur Amphetamines Screen Not Detected U Benzodiazepines Scrn POSITIVE H Urine Cocaine Screen Not Detected U Marijuana (THC) Screen Not Detected Ethyl Alcohol < 10 COVID-19 ([facility]) COVID-19 Clin Com 01/11/22 00:00 Urine clean catch - Urine abel top Urine Culture - Final No growth. DS: Summary Hospital Course Hospital Course: pt is a 71 yo With CAD, SVT, current UTI and long history of refractory depression and anxiety, having failed numerous medication trials who presents for worsening depression with increased passive wish and wanting ECT. On admission, patient was depressed and with passive wish which he and his say was uncharacteristic. He agreed to start ECT and also agreed to complete the cross titration, discontinuing Cymbalta and moving Zoloft to 200 mg. Patient mostly isolative in his room, with some psychomotor retardation and blunted affect. He started ECT and found it to be well tolerated other than some brief nausea afterwards. He and his met with team and both agreed that patient should continue with ECT but would like to do so as an outpatient. His is supportive and very willing to drive him to and from treatment. Patient's mood did improve a little bit and his affect softened and became more expressive, actually smiling and at 1 time laughing. All passive wish had resolved. Patient was tolerating his medications well and was hopeful that ECT would take affect. Senior Telecommunications Consultant discussed use of diazepam and patient agreed to start cutting down and maybe even discontinued his medication. Patient completed 2 sessions of ECT prior to discharge. He is returning to his supportive and continuing to engage in treatment. Patient was not at risk for harm to self or others and his request for discharge honored. Time spent discussing smoking cessation with patient: 3 to 10 minutes Status at Discharge Functional status at discharge: independent ambulation Overall status at discharge: patient is not back to baseline Time Spent with Patient Time attestation: Total time spent providing and/or coordinating discharge services: Time spent: Less than 30 minutes Discharge Plan Discharge Patient Disposition: Home, Self-Care Discharge Diagnosis: MDD, recurrent, severe w/out psychotic symptoms Referrals: Black Morel (medication prescriber) @ [facility] [Other] - 02/11/22 9:40 am (Appt scheduled for February @ 9:40 AM via zoom) Therapists @ [facility] [Other] - 01/19/22 2:00 pm (Appointment scheduled with Jasmin Hunter IN OFFICE in [place] on Wednesday, January 19, 2022 2 PM. This appt is IN OFFICE, [place]. ) Po,Rojelio Venegas MD [Primary Care Provider] - 01/27/22 9:00 am (PATIENT WILL SEE ALEK THAPA NP) Discharge Medications: New cefuroxime axetil 250 mg Tablet 250 mg PO BID 4 Days Qty: 7 0RF sertraline 100 mg Tablet 200 mg PO DAILY 30 Days Qty: 60 0RF Continued lisinopril-hydrochlorothiazide 20-12.5 mg tablet 1 tab PO DAILY Qty: 90 2RF omeprazole 40 mg capsule,delayed release(DR/EC) 40 mg PO DAILY Qty: 90 3RF diazepam 5 mg tablet 5 mg PO TID PRN (Reason: anxiety) multivitamin Tablet 1 tab PO DAILY aspirin [Adult Aspirin Regimen] 81 mg tablet,delayed release (DR/EC) 81 mg PO DAILY atorvastatin 80 mg tablet 80 mg PO DAILY 90 Days Qty: 90 3RF Discontinued duloxetine [Cymbalta] 60 mg capsule,delayed release(DR/EC) 40 mg PO DAILY sertraline 100 mg tablet 150 mg PO DAILY Discharge Orders: Discharge Order (Routine); Ordered 01/15/22 Ordered By: Khalif Alexander Diet: regular diet Activity on Discharge: As tolerated Stand Alone Forms: Patient Portal Discharge page, Community Support Care Plan Goals: Continue ECT MWF: Tuesday01/18/22 arrive@ 6AM Tuesday01/20/22 arrive@ 6AM Tuesday01/22/22 arrive@ 8AM * nothing to eat or drink after midnight the day of ECT Maintain mood and safe behaviors Take medications as prescribed Practice coping skills Continue with outpatient providers and reach out to them as needed Health Concerns: Mood stability and behaviors Urinary Tract Infection: complete course of antibiotics CAD Hypertension Plan of Treatment: Follow up with your PCP, psychiatric provider and other outpatient providers regarding above concerns Take medications as prescribed Continue ECT MWF: Tuesday01/18/22 arrive@ 6AM Tuesday01/20/22 arrive@ 6AM Tuesday01/22/22 arrive@ 8AM * nothing to eat or drink after midnight the day of ECT Assessment: Risk assessment at time of discharge:? Patient was interviewed prior to discharge and found to be fully oriented and without any SI or HI. Patient has insight and demonstrates good judgment in terms of wanting to pursue treatment. Patient is not in imminent risk of harm to self or others and has a safety plan that includes presenting to the closest ER or calling 911 if feeling unsafe.? Patient has been observed closely by nursing and unit staff throughout admission; patient has not engaged in any behaviors that suggest dangerousness to self or others and has demonstrated appropriate behaviors and impulse control Discharge Date/Time: 01/15/22 13:00
== END 2022-01-15 13:00 | disposition home or self-care (01) | DRG 885 ==
LOC: HO.ED 13:59 → HO.PM5 17:42
PROVIDERS: Psychiatry & Neurology Psychiatry; Admitting Provider Psychiatry & Neurology Psychiatry; Emergency Provider Emergency Medicine; PCP Internal Medicine; Visit Provider Psychiatry & Neurology Psychiatry
PROC: (CPT 90870; principal; 2022-01-13 15:20)
PROC: GZB4ZZZ Other Electroconvulsive Therapy (ICD-10-PCS; CPT 90870; principal; 2022-01-15 16:00)
DX: F33.2 Major depressive disorder, recurrent severe without psychotic features (principal); R45.851 Suicidal ideations; N39.0 Urinary tract infection, site not specified; I47.1 Supraventricular tachycardia; N40.0 Benign prostatic hyperplasia without lower urinary tract symptoms; K21.9 Gastro-esophageal reflux disease without esophagitis; F41.1 Generalized anxiety disorder; I25.10 Atherosclerotic heart disease of native coronary artery without angina pectoris; I10 Essential (primary) hypertension; Z20.822 Contact with and (suspected) exposure to COVID-19; Z79.82 Long term (current) use of aspirin; Z79.899 Other long term (current) drug therapy
CPT/HCPCS: 36415; 80053; 80307; 81001; 82077; 85025; 87086; 87635; 90870; 93005; 99285; J0330; J2405

== ENCOUNTER 2022-01-18 05:54 | Day surgery (SDC) | payer MEDICARE, SELFPAY ==
[2022-01-18] VITALS (8 sets, daily range): BP systolic 104–176; BP diastolic 51–96; PULSE 60–82; RESP 16–20; TEMP 36.9–37.2; O2SAT 91–99; BMI 25.0
--- NOTE | 2022-01-18 06:51 | HO.ANESPROP2 ---
[facility] Active Problems Active Problems: All Active Problems (Updated 01/12/22 @ 16:48 by Khalif Alexander MD) MDD (major depressive disorder), recurrent episode, severe (Acute) Depression (Acute) Suicidal ideation (Acute) Urinary tract infection (Acute) Elevated blood sugar (Acute) CAD (coronary artery disease) (Acute) Rib fractures (Acute) SVT (supraventricular tachycardia) (Acute) Abnormal Holter monitor finding (Acute) Contusion, chest wall (Acute) Generalized anxiety disorder (Acute) Chronic fatigue (Acute) Bradycardia (Acute) Essential hypertension (Acute) Rash (Acute) Tick bite (Acute) Major depression, recurrent (Acute) Insect bite (Acute) BPH (benign prostatic hyperplasia) (Chronic) Hypercholesterolemia (Acute) GERD (gastroesophageal reflux disease) (Acute) Past Medical History Medical History Finger fracture, right GERD (gastroesophageal reflux disease) Hypercholesterolemia MDD (major depressive disorder), recurrent episode, severe Rash Family History Family History Father Bladder cancer Mother No problems noted. Family history of problems with anesthesia: No Surgical History Surgical History History of eye surgery History of inguinal hernia repair History of knee surgery History of tonsillectomy History of vasectomy History of Problems with Anesthesia: No Social History Social History Household Members: Spouse Housing: House Do you presently have visiting nurse or other home services: No Alcohol intake: current Alcohol intake frequency: 0-2 drinks per day Patient Tobacco Use Status: Never used Tobacco e-Cigarette/Vaping Use: Never Used Second Hand Smoke Exposure: No Advance Directives: No Advance Directives Information Provided: Yes service: Yes Current occupational status: retired Sexual orientation: Straight/Heterosexual Cognitive needs: No Hearing needs: No Vision needs: Yes Meds Allergies Allergy/AdvReac Type Severity Reaction Status Date / Time No Known Allergies Allergy Verified 01/05/22 14:20 [No Known Allergies*] Home Medications Medication Instructions Recorded Confirmed Last Taken Type multivitamin 1 tab PO DAILY 05/23/20 01/11/22 01/11/22 08:00 History aspirin 81 mg tablet,delayed 81 mg PO DAILY 12/16/21 01/11/22 01/11/22 08:00 History release (Adult Aspirin Regimen) diazepam 5 mg tablet 5 mg PO TID PRN anxiety 01/11/22 01/11/22 01/11/22 08:00 History Exam Exam Date and Time: January 18, 2022 0651 Height,Weight and Vital Signs: Height 5 ft 8 in Weight 74.843 kg Last Vital Signs Temp 98.5 F 01/18/22 06:48 Pulse 61 01/18/22 06:48 Resp 18 01/18/22 06:48 Pulse Ox 97 01/18/22 06:48 O2 Del Method 01/18/22 06:48 Airway Mallampati Class: II TM Dist: >3cm Neck ROM: Full Heart: rrr Lungs: cta Assessment and Plan Assessment Anesthesia Assessment: Anesthesia Plan Discussed and Chart Reviewed Final Anesthetic Review Family History of Problems with Anesthesia: No History of Problems with Anesthesia: No NPO: Yes ASA Class: III Final Preanesthetic Review: No Changes in Pt Med Stat, Meds/Allgs Chart Reviewed and Consent Obtained/Reviewed Patient Risk: Intermediate Procedure Risk: Intermediate Anesthetic Plan Anesthetic Plan: GA Disposition: Standard PACU
[2022-01-18 06:53] LABS: COVID-19 Test Negative (Negative); IDNOW Serial# 16C4AD1C
--- NOTE | 2022-01-18 07:36 | MHC.SHP ---
Pre-Procedural Eval Section A Date of Service: 01/18/22 The patient is an INPATIENT: No Changes since office visit: Yes Cold of Flu in the past 2 weeks, Yes New Medical Problems, Yes Changes in Medication and Yes Patient answered all questions The History & Physical has been completed within 30 days and I have reviewed it.: Yes Section B Chief Complaint: depression Allergies: Allergies Allergy/AdvReac Type Severity Reaction Status Date / Time No Known Allergies Allergy Verified 01/05/22 14:20 [No Known Allergies*] Plan I have reviewed the history and physical and performed a pertinent physical examination on my patient. No changes have occurred unless specified.
--- NOTE | 2022-01-18 07:48 | HO.ECTPROC ---
ECT Procedure Note Diagnosis/Treatment Date of Service: 01/18/22 Diagnosis: Major Depressive Disorder Previous ECT Date: 01/15/22 Current Treatment Number: 3 Treatment: Series Interval Clinical Notes: The patient rerported slight improvement of depression, no side effects with previous ECT. ECT Settings Device: THYMATRON DGx Electrode Placement: Right Unilateral Program/Pulse Width: 0.50 Energy Percent: 100 Seizure Duration By EEG (in seconds): 51 By Motor Observation (in seconds): 29 Medications Administration General Anesthetic: Etomidate (16) Muscle Relaxant: Succinylcholine (100) Ancillary Medications Analgesics: Torodol - Pre ECT Anti-emetics: Zofran - Pre ECT Airway Management Airway Management: Bag Mask Ventilation Treatment Recommendations No Changes Recommended: No change Pt Tolerated Procedure w/o Issue: Yes
== END 2022-01-18 09:55 | disposition home or self-care (01) ==
PROVIDERS: PCP Internal Medicine; Visit Provider Psychiatry & Neurology Psychiatry
PROC: (CPT 90870; principal; 2022-01-18 15:10)
DX: F33.2 Major depressive disorder, recurrent severe without psychotic features (principal); F41.1 Generalized anxiety disorder; I25.10 Atherosclerotic heart disease of native coronary artery without angina pectoris; Z79.899 Other long term (current) drug therapy; Z20.822 Contact with and (suspected) exposure to COVID-19
CPT/HCPCS: 87635; 90870; J0330; J2405

== ENCOUNTER 2022-01-20 05:54 | Day surgery (SDC) | payer MEDICARE, SELFPAY ==
[2022-01-20] VITALS (7 sets, daily range): BP systolic 112–162; BP diastolic 52–89; PULSE 61–76; RESP 14–21; TEMP 36.8–37.1; O2SAT 95–100; BMI 25.0
[2022-01-20 06:42] LABS: COVID-19 Test Negative (Negative); IDNOW Serial# 16C4AD1C
--- NOTE | 2022-01-20 06:48 | HO.ANESPROP2 ---
[facility] Active Problems Active Problems: All Active Problems (Updated 01/12/22 @ 16:48 by Khalif Alexander MD) MDD (major depressive disorder), recurrent episode, severe (Acute) Depression (Acute) Suicidal ideation (Acute) Urinary tract infection (Acute) Elevated blood sugar (Acute) CAD (coronary artery disease) (Acute) Rib fractures (Acute) SVT (supraventricular tachycardia) (Acute) Abnormal Holter monitor finding (Acute) Contusion, chest wall (Acute) Generalized anxiety disorder (Acute) Chronic fatigue (Acute) Bradycardia (Acute) Essential hypertension (Acute) Rash (Acute) Tick bite (Acute) Major depression, recurrent (Acute) Insect bite (Acute) BPH (benign prostatic hyperplasia) (Chronic) Hypercholesterolemia (Acute) GERD (gastroesophageal reflux disease) (Acute) Past Medical History Medical History Finger fracture, right GERD (gastroesophageal reflux disease) Hypercholesterolemia MDD (major depressive disorder), recurrent episode, severe Rash Family History Family History Father Bladder cancer Mother No problems noted. Family history of problems with anesthesia: No Surgical History Surgical History History of eye surgery History of inguinal hernia repair History of knee surgery History of tonsillectomy History of vasectomy History of Problems with Anesthesia: No Social History Social History Household Members: Spouse Housing: House Do you presently have visiting nurse or other home services: No Alcohol intake: current Alcohol intake frequency: 0-2 drinks per day Patient Tobacco Use Status: Never used Tobacco e-Cigarette/Vaping Use: Never Used Second Hand Smoke Exposure: No Advance Directives: No Advance Directives Information Provided: Yes service: Yes Current occupational status: retired Sexual orientation: Straight/Heterosexual Cognitive needs: No Hearing needs: No Vision needs: Yes Meds Allergies Allergy/AdvReac Type Severity Reaction Status Date / Time No Known Allergies Allergy Verified 01/05/22 14:20 [No Known Allergies*] Active Medications: Current Medications Lactated Ringer's (Lr) 1,000 mls @ 50 mls/hr IVCONT .Q20H [facility] Home Medications Medication Instructions Recorded Confirmed Last Taken Type multivitamin 1 tab PO DAILY 05/23/20 01/11/22 01/11/22 08:00 History aspirin 81 mg tablet,delayed 81 mg PO DAILY 12/16/21 01/11/22 01/11/22 08:00 History release (Adult Aspirin Regimen) diazepam 5 mg tablet 5 mg PO TID PRN anxiety 01/11/22 01/11/22 01/11/22 08:00 History Exam Exam Date and Time: January 20, 2022 0648 Pertinent Lab Results Pertinent Lab Results: Laboratory Tests 01/20/22 06:16 COVID-19 ([facility]) Negative COVID-19 Clin Com See Note Airway Mallampati Class: II TM Dist: >3cm Neck ROM: Full Heart: rrr Lungs: cta Assessment and Plan Assessment Anesthesia Assessment: Anesthesia Plan Discussed and Chart Reviewed Final Anesthetic Review Family History of Problems with Anesthesia: No History of Problems with Anesthesia: No NPO: Yes ASA Class: III Final Preanesthetic Review: No Changes in Pt Med Stat, Meds/Allgs Chart Reviewed and Consent Obtained/Reviewed Patient Risk: Intermediate Procedure Risk: Intermediate Anesthetic Plan Anesthetic Plan: GA Disposition: Standard PACU
--- NOTE | 2022-01-20 07:08 | MHC.SHP ---
Pre-Procedural Eval Section A Date of Service: 01/20/22 The patient is an INPATIENT: No Changes since office visit: No Cold of Flu in the past 2 weeks, No New Medical Problems, No Changes in Medication and No Patient answered all questions The History & Physical has been completed within 30 days and I have reviewed it.: Yes Section B Chief Complaint: depression Allergies: Allergies Allergy/AdvReac Type Severity Reaction Status Date / Time No Known Allergies Allergy Verified 01/05/22 14:20 [No Known Allergies*] Plan I have reviewed the history and physical and performed a pertinent physical examination on my patient. No changes have occurred unless specified.
--- NOTE | 2022-01-20 07:23 | HO.ECTPROC ---
ECT Procedure Note Diagnosis/Treatment Date of Service: 01/20/22 Diagnosis: Major Depressive Disorder Previous ECT Date: 01/18/22 Current Treatment Number: 4 Treatment: Series Interval Clinical Notes: The patient reported more anxiety but his mood is slightly better. No side effects with the previous ECT. ECT Settings Device: THYMATRON DGx Electrode Placement: Right Unilateral Program/Pulse Width: 0.50 Energy Percent: 100 Seizure Duration By EEG (in seconds): 50 By Motor Observation (in seconds): 0 Medications Administration General Anesthetic: Etomidate (15) Muscle Relaxant: Succinylcholine (100) Ancillary Medications Analgesics: Torodol - Pre ECT Anti-emetics: Zofran - Pre ECT Airway Management Airway Management: Bag Mask Ventilation Treatment Recommendations No Changes Recommended: No change Pt Tolerated Procedure w/o Issue: Yes
== END 2022-01-20 09:07 | disposition home or self-care (01) ==
PROVIDERS: PCP Internal Medicine; Visit Provider Psychiatry & Neurology Psychiatry
PROC: (CPT 90870; principal; 2022-01-20 07:00)
DX: F33.2 Major depressive disorder, recurrent severe without psychotic features (principal); F41.1 Generalized anxiety disorder; E78.00 Pure hypercholesterolemia, unspecified; Z20.822 Contact with and (suspected) exposure to COVID-19; K21.9 Gastro-esophageal reflux disease without esophagitis; Z79.82 Long term (current) use of aspirin; Z79.899 Other long term (current) drug therapy
CPT/HCPCS: 87635; 90870; J0330; J2405

== ENCOUNTER 2022-01-22 07:52 | Day surgery (SDC) | payer MEDICARE, SELFPAY ==
[2022-01-22] VITALS (7 sets, daily range): BP systolic 117–176; BP diastolic 52–94; PULSE 64–77; RESP 16–21; TEMP 36.1–36.6; O2SAT 91–100; BMI 25.0
--- NOTE | 2022-01-22 08:27 | P.CONAN_ITS ---
[facility] Active Problems Active Problems: All Active Problems (Updated 01/12/22 @ 16:48 by Khalif Alexander MD) MDD (major depressive disorder), recurrent episode, severe (Acute) Depression (Acute) Suicidal ideation (Acute) Urinary tract infection (Acute) Elevated blood sugar (Acute) CAD (coronary artery disease) (Acute) Rib fractures (Acute) SVT (supraventricular tachycardia) (Acute) Abnormal Holter monitor finding (Acute) Contusion, chest wall (Acute) Generalized anxiety disorder (Acute) Chronic fatigue (Acute) Bradycardia (Acute) Essential hypertension (Acute) Rash (Acute) Tick bite (Acute) Major depression, recurrent (Acute) Insect bite (Acute) BPH (benign prostatic hyperplasia) (Chronic) Hypercholesterolemia (Acute) GERD (gastroesophageal reflux disease) (Acute) Past Medical History Medical History Finger fracture, right Family History Family History Father Bladder cancer Mother No problems noted. Family history of problems with anesthesia: No Surgical History Surgical History History of eye surgery History of inguinal hernia repair History of knee surgery History of tonsillectomy History of vasectomy History of Problems with Anesthesia: No Social History Social History Household Members: Spouse Housing: House Do you presently have visiting nurse or other home services: No Alcohol intake: current Alcohol intake frequency: 0-2 drinks per day Patient Tobacco Use Status: Never used Tobacco e-Cigarette/Vaping Use: Never Used Second Hand Smoke Exposure: No Advance Directives: No Advance Directives Information Provided: Yes service: Yes Current occupational status: retired Sexual orientation: Straight/Heterosexual Cognitive needs: No Hearing needs: No Vision needs: Yes Meds Allergies Allergy/AdvReac Type Severity Reaction Status Date / Time No Known Allergies Allergy Verified 01/05/22 14:20 [No Known Allergies*] Home Medications Medication Instructions Recorded Confirmed Last Taken Type multivitamin 1 tab PO DAILY 05/23/20 01/11/22 01/11/22 08:00 History aspirin 81 mg tablet,delayed 81 mg PO DAILY 12/16/21 01/11/22 01/11/22 08:00 History release (Adult Aspirin Regimen) diazepam 5 mg tablet 5 mg PO TID PRN anxiety 01/11/22 01/11/22 01/11/22 08:00 History Exam Exam Date and Time: January 22, [id number] Height,Weight and Vital Signs: Height 5 ft 8 in Weight 74.843 kg Last Vital Signs Temp 97.3 F 01/22/22 08:20 Pulse 64 01/22/22 08:20 Resp 18 01/22/22 08:20 BP 129/74 01/22/22 08:20 Pulse Ox 99 01/22/22 08:20 O2 Del Method 01/22/22 08:20 Airway Mallampati Class: III TM Dist: >3cm Neck ROM: Full Loose/Missing/Broken Teeth: No Heart: RRR Lungs: CTA Assessment and Plan Assessment Anesthesia Assessment: Anesthesia Plan Discussed and Chart Reviewed Final Anesthetic Review Family History of Problems with Anesthesia: No History of Problems with Anesthesia: No ASA Class: II Final Preanesthetic Review: Meds/Allgs Chart Reviewed, Consent Obtained/Reviewed and Anes Risks/Benef Reviewed Patient Risk: Low Procedure Risk: Intermediate Anesthetic Plan Anesthetic Plan: GA Disposition: Standard PACU
[2022-01-22 08:36] LABS: COVID-19 Test Negative (Negative)
--- NOTE | 2022-01-22 09:03 | MHC.SHP ---
Pre-Procedural Eval Section A Date of Service: 01/22/22 The patient is an INPATIENT: No Changes since office visit: No New Medical Problems, No Changes in Medication and No Patient answered all questions The History & Physical has been completed within 30 days and I have reviewed it.: Yes Section B Chief Complaint: depression Allergies: Allergies Allergy/AdvReac Type Severity Reaction Status Date / Time No Known Allergies Allergy Verified 01/05/22 14:20 [No Known Allergies*] Plan I have reviewed the history and physical and performed a pertinent physical examination on my patient. No changes have occurred unless specified.
--- NOTE | 2022-01-22 09:04 | HO.ECTPROC ---
ECT Procedure Note Diagnosis/Treatment Date of Service: 01/22/22 Previous ECT Date: 01/20/22 ECT Settings Device: THYMATRON DGx
--- NOTE | 2022-01-22 09:21 | HO.ECTPROC ---
ECT Procedure Note Diagnosis/Treatment Date of Service: 01/22/22 Diagnosis: Major Depressive Disorder Previous ECT Date: 01/20/22 Current Treatment Number: 5 Treatment: Series Interval Clinical Notes: c/o mild congestion covid neg unsure how ECT is working, but says he feels different though hard for him to elaborate ECT Settings Device: THYMATRON DGx Electrode Placement: Right Unilateral Program/Pulse Width: 0.50 Energy Percent: 100 Seizure Duration By EEG (in seconds): 41 By Motor Observation (in seconds): 24 Medications Administration General Anesthetic: Etomidate (16) Muscle Relaxant: Succinylcholine (100) Ancillary Medications Analgesics: Torodol - Pre ECT Anti-emetics: Zofran - Pre ECT Airway Management Airway Management: Bag Mask Ventilation Treatment Recommendations No Changes Recommended: No change Pt Tolerated Procedure w/o Issue: Yes
== END 2022-01-22 15:19 | disposition home or self-care (01) ==
PROVIDERS: PCP Internal Medicine; Visit Provider Psychiatry & Neurology Psychiatry
PROC: (CPT 90870; principal; 2022-01-22 10:00)
DX: F33.2 Major depressive disorder, recurrent severe without psychotic features (principal); K21.9 Gastro-esophageal reflux disease without esophagitis; E78.00 Pure hypercholesterolemia, unspecified; R73.9 Hyperglycemia, unspecified; I25.10 Atherosclerotic heart disease of native coronary artery without angina pectoris; I10 Essential (primary) hypertension; Z79.82 Long term (current) use of aspirin; Z79.899 Other long term (current) drug therapy; Z20.822 Contact with and (suspected) exposure to COVID-19
CPT/HCPCS: 87635; 90870; J0330; J2405

== ENCOUNTER 2022-01-25 05:52 | Day surgery (SDC) | payer MEDICARE, SELFPAY ==
[2022-01-25 06:37] VITALS: BMI 25.0
[2022-01-25 06:38] LABS: COVID-19 Test Negative (Negative)
--- NOTE | 2022-01-25 06:49 | P.CONAN_ITS ---
[facility] Active Problems Active Problems: All Active Problems (Updated 01/23/22 @ 00:03 by Brissa Montez) MDD (major depressive disorder), recurrent episode, severe (Acute) Urinary tract infection (Acute) Elevated blood sugar (Acute) CAD (coronary artery disease) (Acute) Rib fractures (Acute) SVT (supraventricular tachycardia) (Acute) Abnormal Holter monitor finding (Acute) Contusion, chest wall (Acute) Generalized anxiety disorder (Acute) Chronic fatigue (Acute) Bradycardia (Acute) Essential hypertension (Acute) Rash (Acute) Tick bite (Acute) Major depression, recurrent (Acute) Insect bite (Acute) BPH (benign prostatic hyperplasia) (Chronic) Hypercholesterolemia (Acute) GERD (gastroesophageal reflux disease) (Acute) Past Medical History Medical History Finger fracture, right Family History Family History Father Bladder cancer Mother No problems noted. Family history of problems with anesthesia: No Surgical History Surgical History History of eye surgery History of inguinal hernia repair History of knee surgery History of tonsillectomy History of vasectomy History of Problems with Anesthesia: No Social History Social History Household Members: Spouse Housing: House Do you presently have visiting nurse or other home services: No Alcohol intake: current Alcohol intake frequency: 0-2 drinks per day Patient Tobacco Use Status: Never used Tobacco e-Cigarette/Vaping Use: Never Used Second Hand Smoke Exposure: No Advance Directives: No Advance Directives Information Provided: Yes service: Yes Current occupational status: retired Sexual orientation: Straight/Heterosexual Cognitive needs: No Hearing needs: No Vision needs: Yes Meds Allergies Allergy/AdvReac Type Severity Reaction Status Date / Time No Known Allergies Allergy Verified 01/05/22 14:20 [No Known Allergies*] Home Medications Medication Instructions Recorded Confirmed Last Taken Type multivitamin 1 tab PO DAILY 05/23/20 01/11/22 01/11/22 08:00 History aspirin 81 mg tablet,delayed 81 mg PO DAILY 12/16/21 01/11/22 01/11/22 08:00 History release (Adult Aspirin Regimen) diazepam 5 mg tablet 5 mg PO TID PRN anxiety 01/11/22 01/11/22 01/11/22 08:00 History Exam Exam Date and Time: January 25, 2022 0649 Height,Weight and Vital Signs: Height 5 ft 8 in Weight 74.843 kg Pertinent Lab Results Pertinent Lab Results: Laboratory Tests 01/25/22 06:15 COVID-19 ([facility]) Negative COVID-19 Clin Com See Note Airway Mallampati Class: II TM Dist: >3cm Neck ROM: Full Heart: rrr Lungs: cta Assessment and Plan Assessment Anesthesia Assessment: Anesthesia Plan Discussed and Chart Reviewed Final Anesthetic Review Family History of Problems with Anesthesia: No History of Problems with Anesthesia: No NPO: Yes ASA Class: III Final Preanesthetic Review: No Changes in Pt Med Stat, Meds/Allgs Chart Reviewed and Consent Obtained/Reviewed Patient Risk: Intermediate Procedure Risk: Intermediate Anesthetic Plan Anesthetic Plan: GA Disposition: Standard PACU
--- NOTE | 2022-01-25 07:53 | P.HPSUR_ITS ---
Pre-Procedural Eval Section A Date of Service: 01/25/22 Changes since office visit: Yes New Medical Problems, Yes Changes in Medication and Yes Patient answered all questions; No Cold of Flu in the past 2 weeks The History & Physical has been completed within 30 days and I have reviewed it .: Yes Section B Chief Complaint: depression Allergies: Allergies Allergy/AdvReac Type Severity Reaction Status Date / Time No Known Allergies Allergy Verified 01/05/22 14:20 [No Known Allergies*] Plan I have reviewed the history and physical and performed a pertinent physical examination on my patient. No changes have occurred unless specified.
--- NOTE | 2022-01-25 08:04 | HO.ECTPROC ---
ECT Procedure Note Diagnosis/Treatment Date of Service: 01/25/22 Diagnosis: Major Depressive Disorder Previous ECT Date: 01/20/22 Current Treatment Number: 6 Treatment: Series Interval Clinical Notes: unsure how ECT is working, some memory impairment not confused no lomger si no severe depressive sx ECT Settings Device: THYMATRON DGx Electrode Placement: Right Unilateral Program/Pulse Width: 0.50 Energy Percent: 100 Seizure Duration By EEG (in seconds): 53 Medications Administration General Anesthetic: Etomidate (16) Muscle Relaxant: Succinylcholine (100) Ancillary Medications Analgesics: Torodol - Pre ECT Anti-emetics: Zofran - Pre ECT Airway Management Airway Management: Bag Mask Ventilation Treatment Recommendations Electrode Placement: Right Unilateral Program/Pulse Width: 0.25 Notes: extend recovery time secondary to memory effects will discuss with family Pt Tolerated Procedure w/o Issue: Yes
[2022-01-25 08:05] VITALS: BP 156/99; PULSE 77; RESP 14; TEMP 37.4; O2SAT 96
[2022-01-25 08:10] VITALS: BP 150/86; PULSE 82; RESP 14; O2SAT 100
[2022-01-25 08:15] VITALS: BP 129/80; PULSE 71; RESP 14; O2SAT 97
[2022-01-25 08:20] VITALS: BP 109/91; PULSE 71; RESP 16; O2SAT 99
--- NOTE | 2022-01-25 08:29 | HO.ECTPROC ---
ECT Procedure Note Diagnosis/Treatment Date of Service: 01/25/22 Diagnosis: Major Depressive Disorder ECT Settings Device: THYMATRON DGx
[2022-01-25 08:35] VITALS: BP 132/80; PULSE 68; RESP 14; O2SAT 98
== END 2022-01-25 09:00 | disposition home or self-care (01) ==
PROVIDERS: PCP Internal Medicine; Visit Provider Psychiatry & Neurology Psychiatry
PROC: (CPT 90870; principal; 2022-01-25 07:00)
DX: F33.9 Major depressive disorder, recurrent, unspecified (principal); R41.3 Other amnesia; K21.9 Gastro-esophageal reflux disease without esophagitis; E78.00 Pure hypercholesterolemia, unspecified; Z20.822 Contact with and (suspected) exposure to COVID-19; Z79.82 Long term (current) use of aspirin; Z79.899 Other long term (current) drug therapy
CPT/HCPCS: 87635; 90870; J0330; J2405

== ENCOUNTER 2022-02-03 07:18 | Outpatient (REF) | payer MEDICARE, SELFPAY ==
--- NOTE | ~2022-02-03 | MR_ITS ---
MRI OF THE BRAIN WITHOUT IV CONTRAST INDICATION: Confusion syndrome. Depression. COMPARISON: Head CT 10/10/2009. TECHNIQUE: Multiplanar multisequence MR imaging of the brain was obtained without IV contrast. FINDINGS: There is no hydrocephalus, extra-axial surface collection, or herniation. There is mild chronic microangiopathy. The major flow voids at the skull base are preserved. There is no acute infarct on diffusion-weighted imaging. There is no intracranial hemorrhage on the gradient recalled echo acquisition. The midline structures are normal. The cerebellar tonsils are normally positioned. The cerebellum and brainstem are normal. The craniocervical junction is normal. Osseous marrow signal intensity is homogenous. The visualized soft tissues are unremarkable. There is mild mucosal thickening involving the ethmoid air cells bilaterally and there are small retention cysts within the maxillary sinuses bilaterally. The mastoid air cells are clear. MR/MR head/brain wo con IMPRESSION: - No acute intracranial findings. - There is mild chronic microangiopathy.
== END 2022-02-03 07:19 | disposition home or self-care (01) ==
LOC: HO.MRI 07:18
PROVIDERS: Visit Provider Psychiatry & Neurology Psychiatry
DX: R41.0 Disorientation, unspecified (principal); F32.A Depression, unspecified; I10 Essential (primary) hypertension
CPT/HCPCS: 70551

== ENCOUNTER 2022-02-10 05:50 | Day surgery (SDC) | payer MEDICARE, SELFPAY ==
[2022-02-10] VITALS (8 sets, daily range): BP systolic 115–156; BP diastolic 69–100; PULSE 58–81; RESP 14–19; TEMP 36.8; O2SAT 94–100; BMI 23.6
--- NOTE | 2022-02-10 06:32 | P.CONAN_ITS ---
HPI - Anesthesia Eval Consult details Narrative: Major depressive disorder [facility] Active Problems Active Problems: All Active Problems (Updated 01/28/22 @ 14:42 by KI PikeC) Anxiety and depression (Acute) MDD (major depressive disorder), recurrent episode, severe (Acute) Urinary tract infection (Acute) Elevated blood sugar (Acute) CAD (coronary artery disease) (Acute) Rib fractures (Acute) SVT (supraventricular tachycardia) (Acute) Abnormal Holter monitor finding (Acute) Contusion, chest wall (Acute) Generalized anxiety disorder (Acute) Chronic fatigue (Acute) Bradycardia (Acute) Essential hypertension (Acute) Rash (Acute) Tick bite (Acute) Major depression, recurrent (Acute) Insect bite (Acute) BPH (benign prostatic hyperplasia) (Chronic) Hypercholesterolemia (Acute) GERD (gastroesophageal reflux disease) (Acute) Past Medical History Medical History Finger fracture, right Family History Family History Father Bladder cancer Mother No problems noted. Family history of problems with anesthesia: No Surgical History Surgical History History of eye surgery History of inguinal hernia repair History of knee surgery History of tonsillectomy History of vasectomy History of Problems with Anesthesia: No Social History Social History Household Members: Spouse Housing: House Do you presently have visiting nurse or other home services: No Alcohol intake: current Alcohol intake frequency: 0-2 drinks per day Patient Tobacco Use Status: Never used Tobacco e-Cigarette/Vaping Use: Never Used Second Hand Smoke Exposure: No Advance Directives: No Advance Directives Information Provided: Yes service: Yes Current occupational status: retired Sexual orientation: Straight/Heterosexual Cognitive needs: No Hearing needs: No Vision needs: Yes Meds Allergies Allergy/AdvReac Type Severity Reaction Status Date / Time No Known Allergies Allergy Verified 01/28/22 14:00 [No Known Allergies*] Home Medications Medication Instructions Recorded Confirmed Last Taken Type multivitamin 1 tab PO DAILY 05/23/20 01/11/22 01/11/22 08:00 History aspirin 81 mg tablet,delayed 81 mg PO DAILY 12/16/21 01/11/22 01/11/22 08:00 History release (Adult Aspirin Regimen) diazepam 5 mg tablet 5 mg PO TID PRN anxiety 01/11/22 01/11/22 01/11/22 08:00 History Exam Exam Date and Time: February 10, [id number] Airway Mallampati Class: II TM Dist: >3cm Neck ROM: Full Loose/Missing/Broken Teeth: Yes (Yes ((Partial permant tooth bonded to another tooth))) Heart: rrr+[id number] Lungs: cta b/l Assessment and Plan Assessment Anesthesia Assessment: Anesthesia Plan Discussed and Chart Reviewed Final Anesthetic Review Family History of Problems with Anesthesia: No History of Problems with Anesthesia: No NPO: Yes ASA Class: III Final Preanesthetic Review: No Changes in Pt Med Stat, Meds/Allgs Chart Reviewed, Consent Obtained/Reviewed and Anes Risks/Benef Reviewed Patient Risk: Intermediate Procedure Risk: Intermediate Assessment/Block/Sedation in SS: Assess/Block/Sedation-SS Anesthetic Plan Anesthetic Plan: GA and Agree w/ Assess. and Plan Disposition: Standard PACU
[2022-02-10 06:47] LABS: COVID-19 Test Negative (Negative)
--- NOTE | 2022-02-10 07:38 | MHC.SHP ---
Pre-Procedural Eval Section A Date of Service: 02/10/22 Changes since office visit: Yes Patient answered all questions; No Cold of Flu in the past 2 weeks, No New Medical Problems and No Changes in Medication The History & Physical has been completed within 30 days and I have reviewed it.: Yes Section B Chief Complaint: depression Allergies: Allergies Allergy/AdvReac Type Severity Reaction Status Date / Time No Known Allergies Allergy Verified 01/28/22 14:00 [No Known Allergies*] Plan I have reviewed the history and physical and performed a pertinent physical examination on my patient. No changes have occurred unless specified.
--- NOTE | 2022-02-10 07:48 | HO.ECTPROC ---
ECT Procedure Note Diagnosis/Treatment Date of Service: 02/10/22 Diagnosis: Major Depressive Disorder Previous ECT Date: 02/24/22 Current Treatment Number: 7 Treatment: Series Interval Clinical Notes: pt restarted at 0.25 dose ECT Settings Device: THYMATRON DGx Electrode Placement: Right Unilateral Program/Pulse Width: 0.25 Energy Percent: 100 Seizure Duration By EEG (in seconds): 47 Medications Administration General Anesthetic: Etomidate (16) Muscle Relaxant: Succinylcholine (100) Ancillary Medications Analgesics: Torodol - Pre ECT Anti-emetics: Zofran - Pre ECT Airway Management Airway Management: Bag Mask Ventilation Treatment Recommendations Electrode Placement: Right Unilateral Program/Pulse Width: 0.25 Notes: monitor for confusion n Pt Tolerated Procedure w/o Issue: Yes
== END 2022-02-10 09:22 | disposition home or self-care (01) ==
PROVIDERS: PCP Internal Medicine; Visit Provider Psychiatry & Neurology Psychiatry
PROC: (CPT 90870; principal; 2022-02-10 08:50)
DX: F32.A Depression, unspecified (principal); F41.9 Anxiety disorder, unspecified; Z79.899 Other long term (current) drug therapy; Z20.822 Contact with and (suspected) exposure to COVID-19
CPT/HCPCS: 87635; 90870; J0330; J2405